=== PATIENT | female | born 1990 | race Caucasian/White ===

== ENCOUNTER → 2018-04-13 08:21 | Outpatient (CLI) | payer OTHER, SELFPAY ==
[2018-04-21 13:11] LABS: HPV Reflexed? NOT INDICATED
== END ==
PROVIDERS: Visit Provider Nurse Practitioner Women's Health
DX: Z12.4 Encounter for screening for malignant neoplasm of cervix (principal)
CPT/HCPCS: 88175; G0145

== ENCOUNTER 2018-10-10 12:22 | Emergency (ER) | payer OTHER, SELFPAY ==
[2018-10-10 12:23] VITALS: BP 116/74; PULSE 124; RESP 16; TEMP 37.3; O2SAT 94; BMI 17.9
[2018-10-10] MEDS: Ondansetron 4 MG/2 ML Vial IV (12:54)
[2018-10-10 13:01] LABS: Absolute Lymphocyte Count 0.61 X10^3/ul (0.83-4.51); Absolute Neutrophil Count 4.8 X10^3/uL (2.0-7.7); Hematocrit 42.6 % (37-47); Hemoglobin 14.1 g/dl (12.0-15.0); Lymphocyte # 0.61 X10^3/ul (4.0); Lymphocyte % 10.6 % (19-41); Mean Corp Hgb Conc 33.1 g/gl (32-36); Mean Corpuscular Hgb 29.7 pg (27.0-32.0); Mean Corpuscular Volume 89.7 fL (81-99); Mean Platelet Vol. 10.4 fl (6.2-12.0); Monocyte# 0.34 X10^3/uL; Monocyte% 5.9 % (0-10); Neutrophil % 83.5 % (47-70); Platelet Count 194 K/mm3 (150-450); RBC Distribution Width CV 12.7 % (11.6-14.6); RBC Distribution Width SD 41.4 fl (35.1-43.9); Red Blood Count 4.75 M/mm3 (4.2-5.4); White Blood Count 5.8 K/mm3 (4.4-11.0)
[2018-10-10 13:02] LABS: POSITIVE COUNT NO; POSITIVE DIFFERENTIAL NO; POSITIVE MORPHOLOGY NO
[2018-10-10 13:13] LABS: Anion Gap 10 (5-15); BUN 12 mg/dL (7-18); BUN/Creat Ratio 17.2 RATIO (10-20); Calcium,Total 8.2 mg/dL (8.5-10.1); Chloride 104 mmol/L (98-107); EST Glomerular Filtration Rate 107 mL/min (>60); Est Glom Filt Rate - Afr Amer 130 mL/min (>60); Estimated Creatinine Clearance 105.55 ml/min; Glucose 103 mg/dL (74-106); Potassium 3.3 mmol/L (3.5-5.1); Sodium Level 138 mmol/L (136-145)
[2018-10-10 14:01] LABS: Bacteria 0 SEEN /hpf (None Seen); Mucous, Urine 0 SEEN /hpf (<or=2+); Red Blood Cells-Urine 0 SEEN /hpf (0-5); Squamous Epithelial Cells - UA 0 SEEN /hpf (5-10); White Blood Cells 0 SEEN /hpf (0-5)
[2018-10-10 14:03] LABS: Color, Urine Yellow (Yellow); Glucose, Dipstick Normal (Normal); Ketone-Dipstick 15 mg/dl (Negative); Leukocyte Esterase-Dipstick Negative /ul (Negative); Nitrite-Dipstick Negative (Negative); Occult Blood-Urine 10 /ul (Negative); Protein-Dipstick Negative (Negative); Specific Gravity, Urine 1.015 (1.002-1.030); Urine Bilirubin Dipstick Negative (Negative); Urine Clarity Clear (Clear); Urine Urobilinogen Normal (Normal)
--- NOTE | 2018-10-10 14:29 | ED.VISSUMM ---
- ER Visit Summary Date of Service: 10/10/18 Chief Complaint: [Nausea, vomiting, and diarrhea] History of Present Illness: The patient is a 28 F [presents to the emergency department with symptoms that started 4 days ago. Patient states that she is throwing up every time she tries to eat anything. Patient is having 3-4 watery stools per day. Patient had a fever yesterday. She denies any sick contacts. She does not believe she ate anything questionable. She denies any abdominal pain. She denies urinary symptoms.] Physical Examination: [HEENT-PERRLA, EOMI. Cranial nerves II through XII grossly intact. TMs clear. Mucous membranes moist. No adenopathy. Cardiovascular-regular rate and rhythm without murmur or ectopy Lungs-clear to auscultation, chest wall stable without crepitus or subcu emphysema Abdomen-normoactive bowel sounds, soft, nontender, no rebound or rigidity, no peritoneal signs. Extremities-intact ?4, normal range of motion, normal pulses, atraumatic] Test Results: [CBC with differential obtained showed a white of 5.8, hemoglobin 14, hematocrit 43, platelets 194. Chemistry showed a sodium 138, potassium 3.3, CO2 24, BUN 12, creatinine 0.7. Urinalysis was unremarkable other than she had few ketones.] Emergency Department Course and Treatment: [Patient received Zofran and was ordered 2 L of normal saline. Patient was then able to eat and tolerate p.o.'s. I also ordered stool for enteric pathogens however patient unable to produce a sample here.] Treatment Plan: [She will be given a prescription for Zofran and advised to follow-up with primary care physician section laborer for no doc within the next 5-7 days. Patient advised to return if persistent vomiting, diarrhea, dehydration, worsening abdominal pain, or condition should worsen anyway.] Disposition: [Discharged home in stable condition] Impression: [Viral gastroenteritis] This note was generated with InOpen dictation software. It may contain incorrect words, spelling, and punctuation that were not noted in review of the chart prior to signing ED Disposition - Plan for ED Patient: Chief Complaint: Nausea/Vomiting/Diarrhea Referrals: Care Physician,No Primary [Primary Care Provider] -
--- NOTE | 2018-10-10 14:32 | ED.DCSUM_ITS ---
- ER Visit Summary Date of Service: 10/10/18 Chief Complaint: [Nausea, vomiting, and diarrhea] History of Present Illness: The patient is a 28 F [presents to the emergency department with symptoms that started 4 days ago. Patient states that she is throwing up every time she tries to eat anything. Patient is having 3-4 watery stools per day. Patient had a fever yesterday. She denies any sick contacts. She does not believe she ate anything questionable. She denies any abdominal pain. She denies urinary symptoms.] Physical Examination: [HEENT-PERRLA, EOMI. Cranial nerves II through XII grossly intact. TMs clear. Mucous membranes moist. No adenopathy. Cardiovascular-regular rate and rhythm without murmur or ectopy Lungs-clear to auscultation, chest wall stable without crepitus or subcu emphysema Abdomen-normoactive bowel sounds, soft, nontender, no rebound or rigidity, no peritoneal signs. Extremities-intact ?4, normal range of motion, normal pulses, atraumatic] Test Results: [CBC with differential obtained showed a white of 5.8, hemoglobin 14, hematocrit 43, platelets 194. Chemistry showed a sodium 138, potassium 3.3, CO2 24, BUN 12, creatinine 0.7. Urinalysis was unremarkable other than she had few ketones.] Emergency Department Course and Treatment: [Patient received Zofran and was ordered 2 L of normal saline. Patient was then able to eat and tolerate p.o.'s. I also ordered stool for enteric pathogens however patient unable to produce a sample here.] Treatment Plan: [She will be given a prescription for Zofran and advised to follow-up with primary care physician concrete pavement installer for no doc within the next 5-7 days. Patient advised to return if persistent vomiting, diarrhea, dehydration, worsening abdominal pain, or condition should worsen anyway.] Disposition: [Discharged home in stable condition] Impression: [Viral gastroenteritis] This note was generated with Posterous dictation software. It may contain incorrect words, spelling, and punctuation that were not noted in review of the chart prior to signing ED Disposition - Plan for ED Patient: Chief Complaint: Nausea/Vomiting/Diarrhea Referrals: Care Physician,No Primary [Primary Care Provider] -
--- NOTE | 2018-10-10 14:33 | ED.DEP ---
ED Disposition - Plan for ED Patient: Chief Complaint: Nausea/Vomiting/Diarrhea Instructions: ED Gastroenteritis Viral Prescriptions: Ondansetron [Zofran Odt] 4 mg PO Q8H PRN PRN #10 tab PRN Reason: Nausea Referrals: Care Physician,No Primary [Primary Care Provider] - Ryne Mcdonough III, MD [STAFF PHYSICIAN] - 5-7 Days
[2018-10-10 14:36] VITALS: BP 129/79; PULSE 104; RESP 18; O2SAT 99
== END 2018-10-10 14:49 | disposition home or self-care (01) ==
LOC: ED 12:52
PROVIDERS: Emergency Provider Emergency Medicine
DX: A08.4 Viral intestinal infection, unspecified (principal)
CPT/HCPCS: 80048; 81001; 85025; 96361; 96374; 99284; J7030; J2405

== ENCOUNTER → 2019-08-13 | Outpatient (CLI) | payer OTHER, SELFPAY ==
[2019-08-13 13:59] VITALS: BMI 18.1
[2019-08-13 15:35] LABS: Absolute Neutrophil Count 9.5 X10^3/uL (2.0-7.7); Basophil# 0.04 X10^3/uL; Basophil% 0.3 % (0-1); Eosinophil# 0.09 X10^3/uL; Eosinophils% 0.8 % (0-5); Hematocrit 42.8 % (37-47); Hemoglobin 14.4 g/dL (12.0-15.0); Lymphocyte % 12.6 % (19-41); Mean Corp Hgb Conc 33.6 g/dL (32-36); Mean Corpuscular Hgb 30.7 pg (27.0-32.0); Mean Corpuscular Volume 91.3 fL (81-99); Mean Platelet Vol. 10.4 fl (6.2-12.0); Monocyte# 0.74 X10^3/uL; Monocyte% 6.2 % (0-10); NRBC Flagged by Analyzer 0 % (0-5); Neutrophil # 9.51 X10^3/uL (2.7-7.7); Neutrophil % 79.5 % (47-70); Platelet Count 256 K/mm3 (150-450); RBC Distribution Width CV 12.6 % (11.6-14.6); RBC Distribution Width SD 41.7 fl (35.1-43.9); Red Blood Count 4.69 M/mm3 (4.2-5.4)
[2019-08-13 18:53] LABS: Chlamydia Trachomatis by PCR Negative (Negative); Neisserai gonorrhoeae by PCR Negative (Negative); Probe Check PASS; Sample Adequacy Control PASS; Specimen Processing Control PASS
[2019-08-14 09:23] LABS: HIV - WCH Non-Reactive (Nonreactive); Hepatitis B Surface Antigen Non-Reactive (Nonreactive); Rubella IgG 140.3 IU/mL
[2019-08-16 03:07] LABS: Rapid Plasmin Reagin (RPR) NONREACTIVE (NONREACTIVE)
== END | disposition home or self-care (01) ==
PROVIDERS: Referring Provider Obstetrics & Gynecology; Visit Provider Obstetrics & Gynecology
DX: Z34.90 Encounter for supervision of normal pregnancy, unspecified, unspecified trimester (principal)
CPT/HCPCS: 36415; 85025; 86592; 86703; 86762; 86850; 86900; 86901; 87340; 87491; 87591

== ENCOUNTER → 2019-10-08 17:13 | Outpatient (CLI) | payer OTHER, SELFPAY ==
[2019-10-08 13:48] VITALS: BMI 18.1
== END ==
PROVIDERS: Referring Provider Obstetrics & Gynecology; Visit Provider Obstetrics & Gynecology
DX: Z34.92 Encounter for supervision of normal pregnancy, unspecified, second trimester (principal); Z3A.18 18 weeks gestation of pregnancy
CPT/HCPCS: 87086

== ENCOUNTER → 2019-10-16 07:42 | Outpatient (CLI) | payer OTHER, SELFPAY ==
[2019-09-10 14:01] VITALS: BMI 18.1
[2019-10-08 13:48] VITALS: BMI 18.1
--- NOTE | 2019-10-16 07:43 | US_ITS ---
STUDY: SECOND AND THIRD TRIMESTER OBSTETRICAL ULTRASOUND REASON FOR EXAM: Female, 29 years old ANATOMY LMP: 06/02/2019 TECHNIQUE: Transabdominal TECHNICAL QUALITY: Adequate. PRIOR ULTRASOUND: None. FINDINGS: There is a single intrauterine fetus. The fetus is in a cephalic presentation. There is demonstrated cardiac activity with a heart rate of 160 bpm. There is a normal amniotic fluid volume. The largest amniotic fluid pocket measures 5.1 cm. The amniotic fluid index (ESTELA) is 15.2 cm. The placenta is fundal in location. There are Grade 0 placental changes. The cervix measures 4.5 cm in length. The adnexal regions are not visualized. BIOMETRY: BPD: 4.7: 20 weeks, 1 days HC: 17.1: 19 weeks, 4 days AC: 14.7: 19 weeks, 6 days FL: 3.2: 19 weeks, 5 days CI: FL/BPD: FL/HC: FL/AC: HC/AC: age by current US: 19 weeks, 5 days. EVAN by current US: 03/06/2019. Estimated weight: 318 grams, +/- 47 grams, 70 %. age by prior US: weeks, days. EVAN by prior US: . Age by LMP: 19 weeks, 3 days. EVAN by LMP: 03/08/2020. ANATOMY: Gender: Cranium: Normal lateral ventricles. Normal choroid plexus. Normal cerebellum. Normal cisterna magna. Normal face, nose and lips. Chest: Normal 4-chamber heart. Abdomen/Pelvis: Normal diaphragm. Normal stomach. Normal abdominal wall. Normal cord insertion. Normal 3 vessel cord. Normal kidneys. Normal bladder. Spine: Normal cervical spine. Normal thoracic spine. Normal lumbar spine. Normal sacrum. Extremities: Normal bilateral upper extremities. Normal bilateral lower extremities. US/OB Anatomy Scan IMPRESSION: Single live fetus in a vertex presentation. No demonstrated anatomic abnormality. Placenta is grade 0 and is not low-lying. Cervix is closed. age by current US: 19 weeks, 5 days. EVAN by current US: 03/06/2019. Estimated weight: 318 grams, +/- 47 grams, 70 %. Electronically Signed: Garett May MD at 15:48 EST , Service support ,
== END ==
PROVIDERS: Referring Provider Obstetrics & Gynecology; Visit Provider Obstetrics & Gynecology
DX: Z34.00 Encounter for supervision of normal first pregnancy, unspecified trimester (principal)
CPT/HCPCS: 76805

== ENCOUNTER 2019-11-10 13:40 | Outpatient (CLI) | payer OTHER, SELFPAY ==
[2019-11-05 09:59] VITALS: BMI 18.1
[2019-11-10 13:56] VITALS: BMI 21.0
--- NOTE | 2019-11-12 20:22 | OB.TRI.PN ---
Progress Notes Date of Service: 11/10/19 Progress Note: vaginal bleeding at 23 weeks no cervical dilation no contractions dc home fht present rh positive Multi Select Codes - Urinary/Genital Urinary/Genital CPT Codes: Other Procedure See Report - no charge report visit
== END 2019-11-10 14:20 | disposition home or self-care (01) ==
LOC: WPOUT 13:51 → OBT 13:53
PROVIDERS: Visit Provider Obstetrics & Gynecology
DX: O46.92 Antepartum hemorrhage, unspecified, second trimester (principal); Z3A.23 23 weeks gestation of pregnancy
CPT/HCPCS: 59050; 99218; G0378

== ENCOUNTER → 2019-12-03 | Outpatient (CLI) | payer OTHER, SELFPAY ==
[2019-12-03 15:06] VITALS: BMI 21.0
[2019-12-03 16:36] LABS: Glucose Challenge Gest 1H 50g 215 mg/dL (70-140)
[2019-12-03 16:47] LABS: Absolute Lymphocyte Count 1.92 X10^3/uL (0.83-4.51); Absolute Neutrophil Count 8.2 X10^3/uL (2.0-7.7); Basophil# 0.03 X10^3/uL; Basophil% 0.3 % (0-1); Eosinophil# 0.07 X10^3/uL; Eosinophils% 0.6 % (0-5); Hematocrit 33.8 % (37-47); Hemoglobin 11.3 g/dL (12.0-15.0); Lymphocyte # 1.92 X10^3/ul (4.0); Lymphocyte % 17.4 % (19-41); Mean Corp Hgb Conc 33.4 g/dL (32-36); Mean Corpuscular Hgb 31.4 pg (27.0-32.0); Mean Corpuscular Volume 93.9 fL (81-99); Mean Platelet Vol. 11.1 fl (6.2-12.0); Monocyte# 0.69 X10^3/uL; Monocyte% 6.3 % (0-10); NRBC Flagged by Analyzer 0 % (0-5); Neutrophil # 8.24 X10^3/uL (2.7-7.7); Neutrophil % 74.8 % (47-70); Platelet Count 202 K/mm3 (150-450); RBC Distribution Width CV 12.8 % (11.6-14.6); RBC Distribution Width SD 43.9 fl (35.1-43.9)
[2019-12-04 11:02] LABS: Hepatitis B Surface Antigen Non-Reactive (Nonreactive); Hepatitis C Antibody Non-Reactive (Nonreactive)
== END | disposition home or self-care (01) ==
LOC: PAVLAB 15:24
PROVIDERS: Nurse Practitioner Women's Health; Referring Provider Obstetrics & Gynecology; Visit Provider Obstetrics & Gynecology
DX: Z34.90 Encounter for supervision of normal pregnancy, unspecified, unspecified trimester (principal)
CPT/HCPCS: 36415; 82950; 85025; 86803; 87340

== ENCOUNTER 2019-12-09 20:20 | Outpatient (CLI) | payer OTHER, SELFPAY ==
[2019-12-03 15:06] VITALS: BMI 21.0
[2019-12-09 21:28] VITALS: BMI 21.5
[2019-12-09 21:34] LABS: Color, Urine Straw (Yellow); Glucose, Dipstick Normal (Normal); Ketone-Dipstick 5 mg/dl (Negative); Leukocyte Esterase-Dipstick 100 /ul (Negative); Nitrite-Dipstick Negative (Negative); Occult Blood-Urine Negative /ul (Negative); Protein-Dipstick Negative (Negative); Specific Gravity, Urine 1.005 (1.002-1.030); Urine Bilirubin Dipstick Negative (Negative); Urine Clarity Clear (Clear); Urine Urobilinogen Normal (Normal)
[2019-12-09] MEDS: Acetaminophen 500 MG Tablet 1000 MG PO (22:16)
[2019-12-09] MEDS: Mag Hydrox/Al Hydrox/Simeth 30 ML UDC PO (22:16)
--- NOTE | 2019-12-10 11:18 | OB.TRI.PN_ITS ---
Progress Notes Date of Service: 12/09/19 Progress Note: Patient presents for triage evaluation secondary to abdominal pain FHT: 140 Moderate variability reactive no decelerations category I tracing [place]: no regular Contractions Assessment and plan: abdominal pain no labor likely round ligament, Reactive NST, reassuring maternal and status patient discharged to home to follow- up as scheduled. See problem list details for additional plan information. Laboratory Studies: Laboratory Tests 12/09/19 Range/Units 21:20 Urine Color Straw (Yellow) Urine Clarity Clear (Clear) Urine pH 7.0 (5.0 - 8.0) Ur Specific [place] 1.005 (1.002-1.030) Urine Protein Negative (Negative) mg/dl Urine Glucose (UA) Normal (Normal) mg/dl Urine Ketones 5 H (Negative) mg/dl Urine Occult Blood Negative (Negative) /ul Urine Nitrite Negative (Negative) Urine Bilirubin Negative (Negative) mg/dL Urine Urobilinogen Normal (Normal) mg/dl Ur Leukocyte Esterase 100 H (Negative) /ul Multi Select Codes - Urinary/Genital Urinary/Genital CPT Codes: 40040-16 non-stress test Interp
== END 2019-12-09 22:21 | disposition home or self-care (01) ==
LOC: WPOUT 20:29 → OBT 20:29
PROVIDERS: Visit Provider Obstetrics & Gynecology
DX: O26.899 Other specified pregnancy related conditions, unspecified trimester (principal); R10.9 Unspecified abdominal pain; Z3A.00 Weeks of gestation of pregnancy not specified
CPT/HCPCS: 59025; 59050; 81002; 99218; G0378

== ENCOUNTER → 2020-02-06 13:58 | Outpatient (CLI) | payer OTHER, SELFPAY ==
[2020-01-14 15:35] VITALS: BMI 21.5
--- NOTE | 2020-02-06 13:59 | US_ITS ---
STUDY: SECOND AND THIRD TRIMESTER OBSTETRICAL ULTRASOUND - LIMITED REASON FOR EXAM: Female, 29 years old GROWTH - GEST DM LMP: June 02, 2019. PRIOR ULTRASOUND: Comparison is made with prior examination dated October 16, 2019. TECHNIQUE: Transabdominal TECHNICAL QUALITY: Adequate. FINDINGS: There is a single intrauterine fetus. The fetus is in a cephalic presentation. There is demonstrated cardiac activity with a heart rate of 118 bpm. There is a normal amniotic fluid volume. The largest amniotic fluid pocket measures 3.1 cm. The amniotic fluid index (ESTELA) is 10.3 cm. The placenta is fundal in location. There are Grade 2 placental changes. The cervix measures 5.0 cm in length. BIOMETRY: BPD: 9.04 cm: 36 weeks, 5 days HC: 32.33 cm: 36 weeks, 4 days AC: 33.51 cm: 37 weeks, 3 days FL: 6.81 cm: 35 weeks, 0 days Age by LMP: 35 weeks, 4 days. EVAN by LMP: March 08, 2020. age by prior US: 35 weeks, 6 days. EVAN by prior US: March 06, 2020. age by current US: 36 weeks, 3 days. EVAN by current US: March 02, 2020. Estimated weight: 2994 grams, +/- 437 grams, 79 percentile. US/OB Limited With Biometrics IMPRESSION: Single live uterine gestation with a mean gestational age of 35 weeks and 6 days. The measurements obtained today following with thin the normal expected range. Electronically Signed: Michael Holley, at 15:42 EDT , Service support ,
== END ==
PROVIDERS: Referring Provider Obstetrics & Gynecology; Visit Provider Obstetrics & Gynecology
DX: O24.419 Gestational diabetes mellitus in pregnancy, unspecified control (principal); Z3A.00 Weeks of gestation of pregnancy not specified
CPT/HCPCS: 76816

== ENCOUNTER → 2020-02-11 | Outpatient (CLI) | payer OTHER, SELFPAY ==
[2020-02-11 15:27] VITALS: BMI 21.5
== END | disposition home or self-care (01) ==
LOC: LABSPEC 16:50
PROVIDERS: Referring Provider Obstetrics & Gynecology; Visit Provider Obstetrics & Gynecology
DX: Z34.02 Encounter for supervision of normal first pregnancy, second trimester (principal)
CPT/HCPCS: 87081

== ENCOUNTER 2020-03-07 02:55 | Inpatient (IN) | payer OTHER, SELFPAY ==
[2020-03-03 15:47] VITALS: BMI 21.5
[2020-03-07] VITALS (50 sets, daily range): BP systolic 103–144; BP diastolic 56–90; PULSE 75–118; RESP 16; TEMP 36.1–38.1; O2SAT 92–100; BMI 22.5
[2020-03-07] MEDS: Lactated Ringers 1,000 ML 50 ML IV (03:25)
[2020-03-07 03:35] LABS: Absolute Lymphocyte Count 1.57 X10^3/uL (0.83-4.51); Absolute Neutrophil Count 11.4 X10^3/uL (2.0-7.7); Basophil# 0.03 X10^3/uL; Basophil% 0.2 % (0-1); Eosinophil# 0.01 X10^3/uL; Eosinophils% 0.1 % (0-5); Hematocrit 36.7 % (37-47); Hemoglobin 12.4 g/dL (12.0-15.0); Lymphocyte # 1.57 X10^3/ul (4.0); Lymphocyte % 11.3 % (19-41); Mean Corp Hgb Conc 33.8 g/dL (32-36); Mean Corpuscular Hgb 30.7 pg (27.0-32.0); Mean Corpuscular Volume 90.8 fL (81-99); Mean Platelet Vol. 11.7 fl (6.2-12.0); Monocyte# 0.86 X10^3/uL; Monocyte% 6.2 % (0-10); NRBC Flagged by Analyzer 0 % (0-5); Neutrophil # 11.37 X10^3/uL (2.7-7.7); Neutrophil % 81.5 % (47-70); Platelet Count 212 K/mm3 (150-450); RBC Distribution Width CV 13.5 % (11.6-14.6); RBC Distribution Width SD 44.4 fl (35.1-43.9); Red Blood Count 4.04 M/mm3 (4.2-5.4); White Blood Count 13.9 K/mm3 (4.4-11.0)
[2020-03-07 03:40] LABS: Bedside Glucose 92 mg/dL (70-110)
[2020-03-07] MEDS: fentaNYL 100 MCG/2 ML Ampul IV (04:09)
[2020-03-07] MEDS: Lactated Ringers 500 ML 999 ML IV (04:16)
--- NOTE | 2020-03-07 04:49 | PCM.HP.OB ---
- Problem List (1) Active labor at term Status: Acute (2) Gestational diabetes mellitus (GDM) affecting Status: Acute Comment: diet controlled, plan 34 week growth us. delivery by 40 (3) Supervision of normal first Status: Acute Qualifiers: Comment: PRR EVAN 03/08/2020 boy Spouse Raffy (4) Status: Acute Qualifiers: Comment: Declines genetic, carrier and NTD at this time. anatomy us normal History Date of Admission: 03/07/20 History of this : This is a 29 year-old, at 39 weeks gestational age presents in active labor she has had contractions increasing over the last several hours denies any vaginal bleeding or loss of fluid admits good movement. She has had a complicated by gestational diabetes.. Medical History: Medical History (Last Reviewed 03/03/20 @ 15:43 by Fidelia Zamudio) Ophthalmic migraine G43.109 Anxiety F41.9 Surgical History: Surgical History (Last Reviewed 03/03/20 @ 15:43 by Fidelia Zamudio) S/P wisdom tooth extraction Onset Date: ~2009 Z98.818 Allergies amoxicillin [Amoxicillin] Allergy (Verified 03/07/20 01:33) Vomiting Home Medications: Home Medications vitamin#30 30 mg iron-10 mg iron-folic acid 1 mg-omg3 capsule 1 cap PO DAILY cap 08/13/19 blood sugar diagnostic See Rx Instructions .ROUTE .MEDSUPPLY #100 ea 12/04/19 blood-glucose meter See Rx Instructions .ROUTE .MEDSUPPLY #1 ea 12/04/19 Smoking Status: Never smoker Alcohol: None Number of Fetus(es): 1 NST - FHR Rate Baby A Baseline: 130 Variability:: Moderate Accelerations:: 15 x 15 Decelerations:: None NST Reactive:: Yes FHR Category:: Category I Uterine Activity:: q 2-4 History Past Pregnancies: Past Pregnancies Delivery Date Name GA/ Weeks Outcome Route Wt Sex Labor Length Anesthesia Delivery Location Provider FOB Labs: Mom[facility] Microbiology 03/07/20 03:25 Mucosa - Nasopharyngeal Coronavirus COVID-19 PCR - Pending Mom's Labs & Results 03/07/20 03/07/20 03/07/20 02:00 03:25 03:25 WBC 13.9 H RBC 4.04 L Hgb 12.4 Hct 36.7 L MCV 90.8 MCH 30.7 MCHC 33.8 RDW Std Deviation 44.4 H RDW Coeff of Rick 13.5 Plt Count 212 MPV 11.7 Immature Gran % (Auto) 0.700 Neut % (Auto) 81.5 H Lymph % (Auto) 11.3 L Bledsoe % (Auto) 6.2 Eos % (Auto) 0.1 Baso % (Auto) 0.2 Absolute Neuts (auto) 11.4 H Absolute Lymphs (auto) 1.57 Nucleated RBC % 0 Vag Amniotic Fld Detect Cancelled POC Glucose Blood Type O POSITIVE Antibody Screen NEGATIVE 03/07/20 03:36 WBC RBC Hgb Hct MCV MCH MCHC RDW Std Deviation RDW Coeff of Rick Plt Count MPV Immature Gran % (Auto) Neut % (Auto) Lymph % (Auto) Bledsoe % (Auto) Eos % (Auto) Baso % (Auto) Absolute Neuts (auto) Absolute Lymphs (auto) Nucleated RBC % Vag Amniotic Fld Detect POC Glucose 92 Blood Type Antibody Screen Course Did the patient receive Yes care? Labs Blood Type: O RH: POSITIVE RPR/VDRL/Syphilis Nonreactive Rubella status Immune HbSAg Negative Date Done: 12/03/19 Chlamydia Negative Gonorrhea Negative HIV/AIDS Non-Reactive Group B Strep: Negative Current Obstetrical History Gestational Diabetes Yes Incompetent Cervix No Infertility No IUGR No Macrosomia No Hypertension/Pre-eclampsia No Placenta Previa/Abruption No PTL/PROM No Uterine anomaly No Oligohydramnios No Polyhydramnios No Multiple gestation No Past Medical History Asthma No Diabetes No Hypertension No Heart disease No Mitral valve prolapse No Neurologic/Seizure disorder/ No Migraines Kidney disease No Liver disease No Varicosities No Clotting disorders/Hx of DVT No Thyroid Dysfunction No Other medical diseases No Psychiatric disorders No Major trauma No Abnormal PAP smear No Sleep apnea No Mammogram in the last 2 years No Social History Marital Status: Alleged father Raffy Sparks Hx Smoking No Smoking Status Never smoker Expected Infant Delivery Method: Spontaneous Vaginal Review of Systems Constitutional: Denies: Fever, Malaise Eyes: Denies: Blurred vision, Vision Change HEENT: Denies: Head Aches, Visual Changes Cardiovascular: Denies: Chest Pain, Palpitations Respiratory: Denies: Cough, Shortness of Breath, Wheezing Gastrointestinal: Denies: Abdominal Pain, Diarrhea, Nausea, Vomiting Genitourinary: Denies: Dysuria, Hematuria Musculoskeletal: Denies: Joint Pain, Muscle pain Skin: Denies: Lesions, Rash Neurological: Denies: Blurred vision, Focal weakness, Headaches Psychiatric: Denies: Anxiety, Depression Endocrine: Denies: Heat/ Cold Intolerance Hematologic/ Lymphatic: Denies: Easy Bruising, Easy Bleeding Physical Exam Vitals: Vital Signs Temp Pulse BP Pulse Ox 97.1 F L 92 123/81 H 97 03/07/20 03:55 03/07/20 03:56 03/07/20 03:56 03/07/20 03:55 General: Alert, Cooperative, No apparent distress HEENT: Atraumatic, Normocephalic. Negative for: Thyromegaly, Lymphadenopathy Cardiovascular: Regular rate Lungs: Normal air movement Abdomen: Soft, Non Tender, Gravid Neurological: Deep Tendon Reflexes 2+/4 and Symmetrical, Neuro grossly intact. Negative for: Clonus WET PROCESS MILLER: Normal external genitalia. Negative for: Vulvar lesions Estimated gestational size: Appropriate for gestational size Presentation: Cephalic Cervix Dilation (cm): 3.5 Assessment/Plan All Active Problems (Last Reviewed 03/03/20 @ 15:43 by Fidelia Zamudio) Active labor at term (Acute) Gestational diabetes mellitus (GDM) affecting (Acute) Supervision of normal first (Acute) (Acute) Maxillary sinusitis (Resolved) Pharyngitis (Resolved) This is a 29 year-old, at 39 weeks gestational age presents IAL. Patient presents IAL, plan expectant management for , Pitocin/AROM if needed. Pain management: Plans epidural. GBS negative. Management of any complications: Gestational diabetes check blood sugars in labor I have reviewed the [facility] and made any clinically relevant updates.
[2020-03-07] MEDS: fentaNYL-bupivacaine (epidural) 100 ML BAG EPIDURAL ×3 (05:04→14:12)
[2020-03-07 05:36] LABS: Bedside Glucose 96 mg/dL (70-110)
[2020-03-07 08:30] LABS: Bedside Glucose 94 mg/dL (70-110)
[2020-03-07 08:30] LABS: Bedside Glucose 101 mg/dL (70-110)
[2020-03-07] MEDS: Oxytocin 30 units/NS 500 ml 30 UNITS/500 ML IV.SOLN IV (08:32)
[2020-03-07 08:50] LABS: Bedside Glucose 82 mg/dL (70-110)
[2020-03-07] MEDS: Lactated Ringers 1,000 ML 200 ML IV (09:37)
[2020-03-07] MEDS: Ondansetron 4 MG/2 ML Vial IV (09:54)
[2020-03-07 09:56] LABS: Bedside Glucose 79 mg/dL (70-110)
[2020-03-07] MEDS: Acetaminophen 325 MG Tablet PO (10:31)
[2020-03-07 12:00] LABS: Bedside Glucose 89 mg/dL (70-110)
[2020-03-07 12:00] LABS: Bedside Glucose 90 mg/dL (70-110)
[2020-03-07] MEDS: Mag Hydrox/Al Hydrox/Simeth 30 ML UDC PO (14:12)
[2020-03-07 14:41] LABS: Bedside Glucose 76 mg/dL (70-110)
[2020-03-07 14:41] LABS: Bedside Glucose 77 mg/dL (70-110)
[2020-03-07] MEDS: Oxytocin 30 units/NS 500 ml 30 UNITS/500 ML IV.SOLN 334 UNITS IV (14:57)
--- NOTE | 2020-03-07 15:21 | PCM.OPRPT ---
Problem List (1) Active labor at term Status: Acute (2) Gestational diabetes mellitus (GDM) affecting Status: Acute Comment: diet controlled, plan 34 week growth us. delivery by 40 (3) Supervision of normal first Status: Acute Qualifiers: Comment: PRR EVAN 03/08/2020 boy Spouse Raffy (4) Status: Acute Qualifiers: Comment: Declines genetic, carrier and NTD at this time. anatomy us normal Vaginal Delivery Maternal Presentation: Active Labor 29-year-old G1, P0 at 39 weeks 6 days presents in active labor. She had a complicated by GDM A1 well-controlled with diet Method of Induction: Pitocin Amniotic Membrane Rupture Type: Artificial Amniotic Fluid Description: Clear Final EVAN: 03/08/20 Gestational age: 39 Weeks and 6 Days Date of Procedure: 03/07/20 Pre-Operative Diagnosis: In active labor GDM A1 recurrent decelerations Post-Operative Diagnosis: Same Surgery/ Procedure Performed: Vacuum Assisted Vaginal Delivery Type of Anesthesia: Epidural Description of Procedure: Patient began pushing and after a while heart rate tracing developed recurrent decelerations and temperature was elevated. Head was in the +3 station and pelvis assessed and noted to be adequate. Estimated weight was approximately 7 to 7-1/2 pounds. Patient was consented regarding risk benefits and alternatives to a vacuum operative vaginal delivery patient agreed to proceed with procedure. The vacuum was applied and suction noted to be within the green pressure with 1 pull with countertraction no pop offs with 1 contraction the head delivered archana atraumatically followed by the anterior and posterior shoulders the rest the infant delivered was placed in the maternal abdomen. Delayed cord clamping was employed for approximately 60 seconds. Cord was clamped and cut and gentle traction was applied to the cord and the placenta delivered spontaneously immediately following it was noted to be intact with three-vessel cord. The perineum and vagina were inspected and noted to have a significant third-degree laceration very close to being 4th degree. This was likely due to the vacuum application and also the patient had a very short perineal body. The repair was done in the usual fashion with 3-0 Vicryl Rapide and 2-0 PDS to reapproximate the anal sphincter and capsule. Repair was straightforward and complete and easily done. I discussed with the patient she can still consider vaginal delivery next time and if she does not have an operative vaginal delivery she will have less of the likelihood of tearing.. EBL was 300 cc. Patient and tolerated delivery well. Presentation: ARCHANA Placental Delivery Description: Spontaneous Placenta Disposition: [facility] Cord Vessel Description: 3 Vessels Cord Entanglement: None Estimated Blood Loss: 300 Infant A gender: Male Episiotomy Description: None Laceration: Perineal Extension/lac, 3rd degree Medications given after delivery: IV Pitocin Complications: None Multi Select Codes - Urinary/Genital Urinary/Genital CPT Codes: 50064 Vaginal Delivery global pkg - vacuum and third degree laceration repair
[2020-03-07] MEDS: Ketorolac 10 MG Tablet PO (16:15)
[2020-03-07] MEDS: 0.9% Saline Lock 10 ML Syringe IV (17:19)
[2020-03-07 17:35] LABS: Bedside Glucose 89 mg/dL (70-110)
[2020-03-07 17:35] LABS: Bedside Glucose 83 mg/dL (70-110)
[2020-03-08] VITALS (8 sets, daily range): BP systolic 99–116; BP diastolic 54–76; PULSE 76–103; RESP 16; TEMP 36.2–36.9; O2SAT 99–100
[2020-03-08] MEDS: Ketorolac 10 MG Tablet PO ×2 (03:15→09:23)
[2020-03-08 05:16] LABS: Bedside Glucose 83 mg/dL (70-110)
--- NOTE | 2020-03-08 05:16 | NURSING ---
Patient still unable to void, bladder scanned for >650cc. Kemp catheter inserted.
[2020-03-08] MEDS: Acetaminophen 500 MG Tablet 1000 MG PO ×2 (05:22→13:20)
[2020-03-08] MEDS: Senna/Docusate Sodium 1 Tablet PO (05:22)
--- NOTE | 2020-03-08 08:08 | PCM.PN.OB ---
Patient Problems: Active and Suspected Problems (Last Reviewed 03/03/20 @ 15:43 by Fidelia Zamudio) Active labor at term (Acute) Subjective: doing well no complaints pain controlled no CP SOB N V ambulating well tolerating po lochia moderate, going well, cath replaced, will remove later this morning - Physical Exam Vitals/I&O's: Vital Signs Temp Pulse Resp BP Pulse Ox 97.2 F L 86 16 99/54 L 99 03/08/20 07:59 03/08/20 07:59 03/08/20 07:59 03/08/20 07:59 03/08/20 07:59 Oxygen Delivery Method Room Air Weight: 152 lb 8 oz Body Mass Index (BMI) 22.5 Intake and Output for Last 24 Hours 03/06/20 03/07/20 03/08/20 23:59 23:59 23:59 Intake Total 3290.43 / 3290.43 Output Total 1900 / 1900 1100 / 1100 Balance 1390.43 / 1390.43 -1100 / -1100 General: Alert, Oriented x3 Microbiology Past 72 Hours 03/07/20 03:25 Mucosa - Nasopharyngeal Coronavirus COVID-19 PCR - Final Laboratory Results 03/07/20 06:18: POC Glucose 101 03/07/20 07:33: POC Glucose 94 03/07/20 08:30: POC Glucose 82 03/07/20 09:45: POC Glucose 79 03/07/20 10:45: POC Glucose 90 03/07/20 11:33: POC Glucose 89 03/07/20 12:45: POC Glucose 76 03/07/20 13:46: POC Glucose 77 03/07/20 14:40: POC Glucose 83 03/07/20 16:20: POC Glucose 89 03/08/20 04:59: POC Glucose 83 Current Medications Acetaminophen (Tylenol) 1,000 mg PO Q8H PRN PRN PRN Reason: Pain Score 1-3/10 Last Admin: 03/08/20 05:22 Dose: 1,000 mg Documented by: Bisacodyl (Dulcolax) 10 mg RECTAL UD PRN PRN Reason: If no BM Dextrose (D50w Syringe) 0 gm IV X1 PRN; Protocol PRN Reason: Hypoglycemia Dibucaine (Dibucaine) 1 applic TOPICAL TID PRN PRN; Protocol PRN Reason: Discomfort Glucagon () 1 mg IM .X1 PRN PRN Reason: Hypoglycemia Hydrocortisone (Hytone) 1 applic TOPICAL TID PRN PRN; Protocol PRN Reason: Discomfort Ketorolac Tromethamine (Toradol) 10 mg PO Q6H PRN PRN PRN Reason: Pain Score 1-3/10 Stop: 03/12/20 15:56 Last Admin: 03/08/20 03:15 Dose: 10 mg Documented by: Methylergonovine Maleate (Methergine) 0.2 mg IM X1 PRN PRN Reason: Excess bleeding/uterine atony Ondansetron HCl (Zofran) 4 mg IV Q4H PRN PRN PRN Reason: Nausea Oxycodone HCl (Oxyir) 5 - 10 mg PO Q4H PRN PRN PRN Reason: Pain Score 4-10/10 Senna/Docusate Sodium (Senokot-S, [place]ba-Colace) 1 - 2 tablet PO DAILY PRN PRN PRN Reason: Constipation Last Admin: 03/08/20 05:22 Dose: 2 tablet Documented by: Simethicone (Mylicon) 80 mg PO PCHS PRN PRN Reason: Indigestion/Stomach pain Sodium Chloride () 5 - 15 ml IV UD PRN PRN Reason: SALINE FLUSH Last Admin: 03/07/20 17:19 Dose: 10 ml Documented by: Medical Necessity - Tobacco Use Smoking Status: Never smoker Assessment/Plan All Active Problems (Last Reviewed 03/03/20 @ 15:43 by Fidelia Zamudio) Active labor at term (Acute) Gestational diabetes mellitus (GDM) affecting (Acute) Supervision of normal first (Acute) (Acute) Maxillary sinusitis (Resolved) Pharyngitis (Resolved) s/p PPD # 1 1. routine post delivery care 2. breast feeding- support given 3. rh positive 4. rubella immune
[2020-03-09] MEDS: Ketorolac 10 MG Tablet PO ×2 (00:37→10:44)
[2020-03-09 02:34] VITALS: BP 116/67; PULSE 84; RESP 16; TEMP 36.2
--- NOTE | 2020-03-09 07:02 | DCINST_ITS ---
Discharge Diet: No Restrictions Discharge Activity: Return to Normal Activity, May not drive while taking narcotic pain medications., May Shower May resume sexual activity in: 4-6 weeks Call your doctor if your incision/area has: Continuous Slow Oozing, Sudden Increased Bleeding, Increased Pain/ Swelling, Increased Redness, Foul Smelling Discharge Additional Instructions: If you experience any of the following, contact your healthcare provider. * Bleeding that soaks a pad every hour for 2 hours * Fever 100.4 or higher * Unrelieved incision or abdominal pain * Swelling, redness, discharge or bleeding from your incision or episiotomy site * Your incision begins to separate * Problems urinating (including inability to urinate or burning while urinating). * Visual changes * Severe headache * Flu-like symptoms * Pain or redness in one of both of your breasts * Pain, warmth, tenderness or swelling in your legs, especially the calf area * Frequent nausea and vomiting * Symptoms of depression or anxiety If you experience any of the following, call 911 or go to the nearest Emergency Room. * Chest pain * Problems breathing * Seizure activity * Partial or complete paralysis of a body part, slurred speech, weakness or drooping of the face, or a sudden inability to walk or hold your balance Allergies/Adverse Reactions: Allergies amoxicillin [Amoxicillin] Allergy (Verified 03/07/20 01:33) Vomiting Medications to take at Discharge vitamin#30 30 mg iron-10 mg iron-folic acid 1 mg-omg3 capsule 1 cap PO DAILY cap 08/13/19 blood sugar diagnostic See Rx Instructions .ROUTE .MEDSUPPLY #100 ea 12/04/19 blood-glucose meter See Rx Instructions .ROUTE .MEDSUPPLY #1 ea 12/04/19 Docusate Sodium [Colace] 100 mg PO BID #60 cap 03/09/20 Naproxen [Naprosyn] 250 - 500 mg PO Q8H PRN PRN #30 tab 03/09/20 Oxycodone HCl/Acetaminophen [Percocet 5-325] 1 - 2 tablet PO Q6H PRN PRN 7 Days #15 tablet 03/09/20 Please Follow Up With: Emmy Mary MD - [phone] When: Call to make an appointment with your doctor in 6 weeks. If you had elevated Blood pressure or 4th degree laceration you will need to be seen in 2 weeks. Primary Care Physician: Care Physician,No Primary [Primary Care Provider] - Test Results: Test results from this visit will be discussed in further detail at your follow- up appointment, if applicable.
--- NOTE | 2020-03-09 07:02 | PCM.PN.OB ---
Patient Problems: Active and Suspected Problems (Last Reviewed 03/03/20 @ 15:43 by Fidelia Zamudio) Active labor at term (Acute) Subjective: doing well no complaints pain controlled no CP SOB N V ambulating well tolerating po lochia moderate, going well - Physical Exam Vitals/I&O's: Vital Signs Temp Pulse Resp BP Pulse Ox 97.1 F L 84 16 116/67 99 03/09/20 02:34 03/09/20 02:34 03/09/20 02:34 03/09/20 02:34 03/08/20 16:52 Oxygen Delivery Method Room Air Weight: 152 lb 8 oz Body Mass Index (BMI) 22.5 Intake and Output for Last 24 Hours 03/07/20 03/08/20 03/09/20 23:59 23:59 23:59 Intake Total 3290.43 / 3290.43 Output Total 1900 / 1900 1880 / 1880 Balance 1390.43 / 1390.43 -1880 / -1880 General: Alert, Oriented x3 Microbiology Past 72 Hours 03/07/20 03:25 Mucosa - Nasopharyngeal Coronavirus COVID-19 PCR - Final Current Medications Acetaminophen (Tylenol) 1,000 mg PO Q8H PRN PRN PRN Reason: Pain Score 1-3/10 Last Admin: 03/08/20 13:20 Dose: 1,000 mg Documented by: Bisacodyl (Dulcolax) 10 mg RECTAL UD PRN PRN Reason: If no BM Dextrose (D50w Syringe) 0 gm IV X1 PRN; Protocol PRN Reason: Hypoglycemia Dibucaine (Dibucaine) 1 applic TOPICAL TID PRN PRN; Protocol PRN Reason: Discomfort Glucagon () 1 mg IM .X1 PRN PRN Reason: Hypoglycemia Hydrocortisone (Hytone) 1 applic TOPICAL TID PRN PRN; Protocol PRN Reason: Discomfort Ketorolac Tromethamine (Toradol) 10 mg PO Q6H PRN PRN PRN Reason: Pain Score 1-3/10 Stop: 03/12/20 15:56 Last Admin: 03/09/20 00:37 Dose: 10 mg Documented by: Methylergonovine Maleate (Methergine) 0.2 mg IM X1 PRN PRN Reason: Excess bleeding/uterine atony Ondansetron HCl (Zofran) 4 mg IV Q4H PRN PRN PRN Reason: Nausea Oxycodone HCl (Oxyir) 5 - 10 mg PO Q4H PRN PRN PRN Reason: Pain Score 4-10/10 Senna/Docusate Sodium (Senokot-S, Alba-Colace) 1 - 2 tablet PO DAILY PRN PRN PRN Reason: Constipation Last Admin: 03/08/20 05:22 Dose: 2 tablet Documented by: Simethicone (Mylicon) 80 mg PO PCHS PRN PRN Reason: Indigestion/Stomach pain Sodium Chloride () 5 - 15 ml IV UD PRN PRN Reason: SALINE FLUSH Last Admin: 03/07/20 17:19 Dose: 10 ml Documented by: Medical Necessity - Tobacco Use Smoking Status: Never smoker Assessment/Plan All Active Problems (Last Reviewed 03/03/20 @ 15:43 by Fidelia Zamudio) Active labor at term (Acute) Gestational diabetes mellitus (GDM) affecting (Acute) Supervision of normal first (Acute) (Acute) Maxillary sinusitis (Resolved) Pharyngitis (Resolved) s/p PPD # 2 1. routine post delivery care 2. breast feeding- support given 3. rh positive 4. rubella immune
[2020-03-09 07:22] VITALS: BP 105/61; PULSE 96; O2SAT 98
[2020-03-09 07:23] VITALS: BP 105/61; PULSE 96; RESP 16; TEMP 37; O2SAT 98
[2020-03-09] MEDS: Dibucaine 30 GM Tube 1 APPLIC TOPICAL (11:55)
[2020-03-09 12:05] VITALS: BP 104/58; PULSE 64; RESP 16; TEMP 36.3; O2SAT 99
== END 2020-03-09 12:40 | disposition home or self-care (01) | DRG 768 ==
LOC: WPOUT 03:05 → WP 03:05
PROVIDERS: Admitting Provider Obstetrics & Gynecology; Referring Provider Obstetrics & Gynecology; Visit Provider Obstetrics & Gynecology
DX: O24.420 Gestational diabetes mellitus in childbirth, diet controlled (principal); Z37.0 Single live birth; O70.20 Third degree perineal laceration during delivery, unspecified; O76 Abnormality in fetal heart rate and rhythm complicating labor and delivery; Z3A.39 39 weeks gestation of pregnancy
CPT/HCPCS: 59025; 59050; 82962; 85025; 86850; 86900; 86901; 87635; 99218; G2023; J7120; A4216; G0378; J2405; U0004

== ENCOUNTER 2020-03-18 22:05 | Emergency (ER) | payer OTHER, SELFPAY ==
[2020-03-07 01:33] VITALS: BMI 22.5
[2020-03-18 22:06] VITALS: BP 121/73; PULSE 109; RESP 16; TEMP 37.1; O2SAT 96; BMI 19.8
[2020-03-18 22:20] VITALS: TEMP 37.2
--- NOTE | 2020-03-18 22:20 | EKG12_ITS ---
Test Reason : DYSRHYTHMIA Blood Pressure : / mmHG Vent. Rate : 094 BPM Atrial Rate : 094 BPM P-R Int : 148 ms QRS Dur : 076 ms QT Int : 336 ms P-R-T Axes : 071 078 040 degrees QTc Int : 420 ms Normal sinus rhythm Normal ECG Confirmed by ALEJANDRO QUINONEZ, HBARGAV ([id number]), editorial cartoonist REHANA VILLALTA ([id number]) on 03/20/2020 10:43:06 AM Referred By: AUSTYN Confirmed By:BHARGAV ALLEN MD
--- NOTE | 2020-03-18 22:25 | ED.RN ---
NO OLD EKGS IN MUSE
--- NOTE | 2020-03-18 22:42 | US_ITS ---
STUDY: ULTRASOUND TRANSVAGINAL CLINICAL: Female, 29 years old. POST FEVER AND BLEEDING TECHNIQUE: Transabdominal and Transvaginal COMPARISON: None. FINDINGS: Normal uterine size measuring 10.9 x 9.4 x 5.9 cm in maximal craniocaudal dimension. There are no myometrial masses. Endometrial echoes measure 1.2 cm and are irregular with some fluid within the endometrial cavity. This may be blood. No definite focal soft tissue structures. Normal uterine cervix. Normal right ovary, measuring 2.1 x 2.1 x 1.1 cm. There is normal blood flow. Normal left ovary, measuring 2.2 x 1.5 x 1.1 cm. There is normal blood flow. There is no free fluid in the pelvis. Polycystic ovary disease: No. US/Pelvic (Non ) IMPRESSION: Enlarged uterus consistent with recent . Thickened endometrial echoes with a small amount of endometrial fluid which could be blood, but there is no specific evidence of retained products of conception. Electronically Signed: Garett May MD at 23:33 EDT , Service support ,
[2020-03-18 22:47] LABS: Bacteria 0 SEEN /hpf (None Seen); Mucous, Urine 0 SEEN /hpf (<or=2+); Squamous Epithelial Cells - UA 0 SEEN /hpf (5-10)
[2020-03-18 22:50] LABS: Absolute Lymphocyte Count 1.23 X10^3/uL (0.83-4.51); Absolute Neutrophil Count 9.4 X10^3/uL (2.0-7.7); Basophil# 0.03 X10^3/uL; Basophil% 0.3 % (0-1); Eosinophil# 0.04 X10^3/uL; Eosinophils% 0.3 % (0-5); Hematocrit 36.1 % (37-47); Hemoglobin 11.5 g/dL (12.0-15.0); Lymphocyte # 1.23 X10^3/ul (4.0); Lymphocyte % 10.7 % (19-41); Mean Corp Hgb Conc 31.9 g/dL (32-36); Mean Corpuscular Hgb 29.6 pg (27.0-32.0); Mean Corpuscular Volume 92.8 fL (81-99); Mean Platelet Vol. 9.8 fl (6.2-12.0); Monocyte# 0.74 X10^3/uL; Monocyte% 6.4 % (0-10); NRBC Flagged by Analyzer 0 % (0-5); Neutrophil # 9.44 X10^3/uL (2.7-7.7); Neutrophil % 81.9 % (47-70); Platelet Count 402 K/mm3 (150-450); RBC Distribution Width CV 13.6 % (11.6-14.6); RBC Distribution Width SD 45.7 fl (35.1-43.9); Red Blood Count 3.89 M/mm3 (4.2-5.4); White Blood Count 11.5 K/mm3 (4.4-11.0)
[2020-03-18 22:57] LABS: Color, Urine Yellow (Yellow); Glucose, Dipstick Normal (Normal); Ketone-Dipstick Negative (Negative); Leukocyte Esterase-Dipstick 100 /ul (Negative); Nitrite-Dipstick Negative (Negative); Occult Blood-Urine 250 /ul (Negative); Protein-Dipstick Negative (Negative); Specific Gravity, Urine 1.015 (1.002-1.030); Urine Bilirubin Dipstick Negative (Negative); Urine Clarity Clear (Clear); Urine Urobilinogen Normal (Normal)
[2020-03-18 22:58] LABS: Prothrombin Time (Protime)PT. 13.1 SECONDS (11.7-14.9)
[2020-03-18 22:59] LABS: Partial Thromboplast Time 30.2 Seconds (24.1-36.2)
[2020-03-18 23:12] LABS: ALB/GLOB Ratio 0.7 RATIO (0.9-2.4); AST(SGOT) 15 U/L (15-37); Alanine Aminotransfer ALT/SGPT 21 U/L (13-56); Albumin, Serum 3.2 g/dL (3.2-5.0); Alkaline Phosphatase 122 U/L (45-117); Anion Gap 10 (5-15); BUN 19 mg/dL (7-18); BUN/Creat Ratio 23.7 RATIO (10-20); Calcium,Total 8.7 mg/dL (8.5-10.1); Chloride 106 mmol/L (98-107); EST Glomerular Filtration Rate 91 mL/min (>60); Est Glom Filt Rate - Afr Amer 110 mL/min (>60); Estimated Creatinine Clearance 101.35 ml/min; Globulin 4.5 g/dL (2.2-4.2); Glucose 100 mg/dL (74-106); Lactic Acid 0.6 mmol/L (0.4-1.9); Potassium 3.8 mmol/L (3.5-5.1); Protein, Total 7.7 g/dL (6.4-8.2); Sodium Level 139 mmol/L (136-145)
[2020-03-18 23:20] VITALS: BP 126/82; PULSE 111; RESP 16; TEMP 36.9; O2SAT 97
[2020-03-18 23:27] LABS: Red Blood Cells-Urine 0-5 SEEN /hpf (0-5); White Blood Cells 5-10 SEEN /hpf (0-5)
--- NOTE | 2020-03-19 00:11 | ED.DCSUM_ITS ---
- ER Visit Summary Date of Service: 03/19/20 Chief Complaint: [Fever] History of Present Illness: The patient is a 29 F [presents the emergency department fever that started around 8 PM this evening. Patient states that she took her temperature orally and it was up to 101. Patient denies any other real significant symptoms other than she started having some lower abdominal cramping and some spotting of some bright red blood. Patient is 11 days and delivered vaginally. No significant complications at the time. She denies any sick contacts. She denies any cough or sore throat or body aches. No exposures to anybody with COVID-19. She currently denies any abdominal pain. She is had no vomiting or diarrhea. Patient is nursing. No tenderness or redness noted to the breasts.] Physical Examination: [HEENT-PERRLA, EOMI. Cranial nerves II through XII grossly intact. TMs clear. Mucous membranes moist. No adenopathy. Cardiovascular-regular rate and rhythm without murmur or ectopy Lungs-clear to auscultation, chest wall stable without crepitus or subcu em physema Abdomen-normoactive bowel sounds, soft, nontender, no rebound or rigidity, no peritoneal signs. Extremities-intact ?4, normal range of motion, normal pulses, atraumatic] Test Results: [CBC with differential obtained showed a slightly elevated white blood cell count of 11.5, hemoglobin 11.5, hematocrit 36, platelets 402. Chemistries unremarkable. LFTs unremarkable. Urinalysis showed 100 leukocyte esterase and 5-10 WBCs with no bacteria noted. Lactate was normal 0.6. Bleeding times were unremarkable.] Pelvic ultrasound obtained showed a enlarged uterus which is consistent with recent delivery. Patient had some blood noted within the uterus but no evidence of retained products. Emergency Department Course and Treatment: [Blood cultures ordered. IV line established on arrival. Case was discussed with Dr. Dafne Yin who was covering for Dr. Mary. At this point there is no clear indication for antibiotics. Patient did not have a fever on arrival here and she did not treat her fever at home.] Treatment Plan: [Patient to follow-up with her [facility] [employer]PERATOR within next 3 to 5 days. Patient advised to return if fever, urinary symptoms, cough, or condition should worsen anyway.] Disposition: [Discharged home in stable condition] Impression: [Fever-etiology uncertain] This note was generated with [employer] dictation software. It may contain incorrect words, spelling, and punctuation that were not noted in review of the chart prio r to signing ED Disposition - Plan for ED Patient: Referrals: Care Physician,No Primary [Primary Care Provider] -
[2020-03-19 00:14] VITALS: BP 119/77; PULSE 95; RESP 18; TEMP 37.2; O2SAT 96
--- NOTE | 2020-03-19 00:15 | ED.DEP ---
ED Disposition - Plan for ED Patient: Instructions: ED FUO Adult Referrals: Care Physician,No Primary [Primary Care Provider] - Emmy Mary MD [STAFF PHYSICIAN] - 3-5 Days
== END 2020-03-19 00:24 | disposition home or self-care (01) ==
PROVIDERS: Emergency Medicine; Emergency Provider Emergency Medicine
DX: O86.4 Pyrexia of unknown origin following delivery (principal)
CPT/HCPCS: 76856; 80053; 81001; 83605; 85025; 85610; 85730; 87040; 87077; 87086; 87088; 87186; 93005; 99284; A4216

== ENCOUNTER → 2021-07-27 | Outpatient (CLI) | payer OTHER, SELFPAY ==
[2021-07-30 16:30] LABS: HPV Reflexed? NOT INDICATED
== END | disposition home or self-care (01) ==
PROVIDERS: Referring Provider Nurse Practitioner Women's Health; Visit Provider Nurse Practitioner Women's Health
DX: Z12.4 Encounter for screening for malignant neoplasm of cervix (principal)
CPT/HCPCS: 88175; G0145

== ENCOUNTER → 2022-07-28 | Outpatient (CLI) | payer OTHER, SELFPAY ==
--- NOTE | 2022-07-28 14:16 | US_ITS ---
STUDY: ULTRASOUND OF THE FEMALE PELVIS - COMPLETE REASON FOR EXAM: Female, 32 years old. Abnormal uterine bleeding. LMP: 07/19/2022. TECHNIQUE: Transabdominal and Transvaginal TECHNICAL QUALITY: Adequate. COMPARISON: Comparison is made with prior study dated 03/18/2020. FINDINGS: The uterus is anteverted and is in a midline position. The uterus measures 7.4 cm x 5 cm x 4 cm. Normal uterine cervix. The endometrium measures 4 mm in thickness, and is hyperechoic. There is no demonstrated endometrial mass. There is no demonstrated myometrial mass. I.U.D. - The patient does not have an I.U.D. The right ovary is visualized. The right ovary measures 3.5 cm x 3 cm x 2.1 cm. Follicles are seen within the ovary. There is no visualized right adnexal mass or complex lesion. There is normal arterial and normal venous vascularity. The left ovary is visualized. The left ovary measures 1.8 cm x 2.2 cm x 1.7 cm. Follicles are seen within the ovary. There is no visualized left adnexal mass or complex lesion. There is normal arterial and normal venous vascularity. There is no fluid in the cul-de-sac. The pre void volume of the bladder was 511 ml. US/Pelvic (Non ) IMPRESSION: Follicles are seen in both ovaries. Electronically Signed: Michael Holley MD at 15:48 EDT ,
== END | disposition home or self-care (01) ==
PROVIDERS: Visit Provider Obstetrics & Gynecology
DX: N92.3 Ovulation bleeding (principal)
CPT/HCPCS: 76856

== ENCOUNTER → 2024-03-21 | Outpatient (CLI) | payer OTHER, SELFPAY ==
[2024-03-24 12:09] LABS: HPV APTIMA, High Risk Negative (Negative)
== END | disposition home or self-care (01) ==
LOC: LAB 10:22
PROVIDERS: Referring Provider Nurse Practitioner Women's Health; Visit Provider Nurse Practitioner Women's Health
DX: Z12.4 Encounter for screening for malignant neoplasm of cervix (principal)
CPT/HCPCS: 87624; 88175; G0145

== ENCOUNTER 2024-09-17 02:01 | Emergency (ER) | payer OTHER, SELFPAY ==
[2024-09-17 02:03] VITALS: BP 129/82; PULSE 106; RESP 20; TEMP 36.6; O2SAT 100; BMI 21.1
[2024-09-17 02:06] VITALS: BP 129/82; PULSE 99; RESP 20; TEMP 36.6; O2SAT 100
--- NOTE | 2024-09-17 02:09 | CT_ITS ---
EXAM: CT Abdomen And Pelvis W/O Contrast Injection HISTORY: Pain nausea, mid abd pain, neg hcg TECHNIQUE: Routine protocol CT abdomen and pelvis. IV Contrast: None.. Oral contrast: None. RADIATION DOSAGE (If Supplied By Facility): CTDIvol = ( 6.21 ) mGy, DLP = ( 301.15 ) mGycm Individualized dose optimization techniques were used for this CT. COMPARISON: None. LIMITATIONS: None. FINDINGS: LOWER CHEST: Included lung bases are clear. LIVER: Grossly unremarkable. GALLBLADDER AND BILIARY TREE: Grossly unremarkable. PANCREAS: Grossly unremarkable. SPLEEN: Grossly unremarkable. Small adjacent nodule likely a splenule. ADRENAL GLANDS: Grossly unremarkable. KIDNEYS AND URETERS: No calculi demonstrated. No hydronephrosis. PERITONEUM: No free air. No free fluid. BOWEL: No bowel obstruction. APPENDIX: Visualized and unremarkable. No evidence of acute appendicitis. VESSELS: Abdominal aorta is normal caliber. REPRODUCTIVE ORGANS: Grossly unremarkable URINARY BLADDER: Minimally distended. ABDOMINAL WALL: Unremarkable. BONES: No acute abnormalities. CT/Abdomen/Pelvis without Cont IMPRESSION: No acute findings. Electronically Signed: Tejal Palafox MD at 3:08 EST ,
--- NOTE | 2024-09-17 02:10 | EDS_ITS ---
HPI HPI - GI History of Present Illness Chief Complaint: Abd Pain Detail of Chief Complaint: Abdominal pain Informant: patient Abdominal Pain/Flank Pain Maximum Severity: 8/10 Narrative Narrative: Patient presents with sudden onset of abdominal pain that started around 12:30 AM and woke her up from sleep. Pain is left-sided and radiates to her back. Denies urinary symptoms. Denies hematuria. Denies fever. She has had nausea but no vomiting. She is never had pain like this before. No prior abdominal surgeries. Patient has not missed any menstrual periods and is about the start her period. No history of kidney stones or diverticulitis. One of the . [facility] Medical History (Updated 09/17/24 @ 04:[address] Maury Yuan, DO) Ophthalmic migraine Anxiety Home Medications ?Medication ?Instructions ?Recorded ?Last Taken ?Type lansoprazole 30 mg capsule,delayed 30 mg PO DAILY #14 caps 09/17/24 Unknown Rx release (Prevacid) Allergy/AdvReac Type Severity Reaction Status Date / Time amoxicillin (Amoxicillin) Allergy Vomiting Verified 09/17/24 02:08 Family History Father Hypertension Diabetes CVA (cerebral vascular accident) Other Family history of high cholesterol Surgical History S/P wisdom tooth extraction (~2009) Social History adopted: No household members: spouse housing: house number of children: 0 current occupational status: employed 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 pets and animals: No history of recent travel: No Smoking Status: Never smoker second hand exposure: No alcohol intake: never substance use type: does not use what type of physical activity do you participate in: none seatbelt use: always do you feel safe at home: Yes additional social history: - [employer]- [employer] ROS ROS ED Review of Systems ROS Unobtainable: other Constitutional Constitutional ED: Reports lethargy; Denies chills, fever(s), sweats or weight loss Eyes Eyes: Denies blurry vision, change in vision or diplopia ENT ENT ED: Denies rhinorrhea or sore throat Cardiovascular Cardiovascular: Denies chest pain, orthopnea or racing heartbeat Respiratory/Chest Respiratory/Chest: Denies cough, dyspnea, dyspnea on exertion, orthopnea or sputum Gastrointestinal Gastrointestinal: Reports abdominal pain and nausea; Denies diarrhea or vomiting Genitourinary Genitourinary ED: Denies dysuria, hematuria or urinary frequency Musculoskeletal Musculoskeletal: Denies arthralgias, back pain, myalgias or neck pain Integumentary Denies abscess, Abrasions or rash Neurologic Neurologic: Denies headache(s) or weakness Psychiatric Psychiatric: Denies anxiety, depression or suicidal thoughts Endocrine Endocrinology: Denies polydipsia, polyphagia or polyuria Hematologic/Lymphatic Hematologic/Lymphatic: Denies easy bleeding, easy bruising or lymphadenopathy Allergic/Immunologic Allergic/Immunologic ED: Denies mouth swelling, tongue swelling or urticaria EXAM Physical Exam Const Vital Signs: 09/17/24 02:03 09/17/24 02:06 09/17/24 03:06 Temperature 98 F 98 F 98.4 F Temperature Source Oral Oral Oral Pulse Rate 106 H 99 77 Respiratory Rate 20 H 20 H 16 Blood Pressure 129/82 H 129/82 H 118/80 Blood Pressure Mean 97 97 92 Pulse Ox 100 100 97 Oxygen Delivery Method Room Air Room Air Room Air 09/17/24 04:00 Temperature 98.4 F Temperature Source Oral Pulse Rate 72 Respiratory Rate 16 Blood Pressure 116/77 Blood Pressure Mean 90 Pulse Ox 97 Oxygen Delivery Method Room Air Positive well nourished and well developed General Appearance ED: well developed and NAD HEENT Reports TM's clear and moist mucous membranes normocephalic and atraumatic; Negative for trauma or tenderness Tympanic Membrane ED: Yes TM's clear Eyes PERRL and EOMs intact bilaterally General Eye ED: Negative for pale conjunctiva or scleral icterus Neck no lymphadenopathy, supple and no JVD General: Negative for tenderness Chest Wall inspection of chest normal and palpation of chest normal Chest: Negative for tenderness Resp normal respiratory effort and clear to auscultation bilaterally Effort and Inspection: Negative for respiratory distress or pain with movement Auscultation: Negative for rhonchi, wheezes or diminished lung sounds Cardio regular rate, regular rhythm, S1 normal heart sound, S2 normal heart sound and no murmurs Peripheral Pulses: pulses 2+ throughout GI normal to inspection, nondistended, normoactive bowel sounds, soft to palpation, non-distended and no masses GI Narrative: Mild tenderness left lower quadrant and left upper quadrant. There is no rebound, rigidity, or renal signs. No mass palpated. She does have CVA tenderness on the left Back/Spine no thoracic nor lumbar tenderness Back/Spine Narrative: Left CVA tenderness Extremity normal to inspection General Extremety ED: Negative for edema General Extremity: Negative for edema Neuro oriented x3, CN's II-XII intact bilaterally, no sensory deficits noted and gait normal Sensorium / Orientation: awake, alert, oriented to person, oriented to place and oriented to time Motor Exam: strength 5/5 throughout and strength abnormal Psych mental status grossly normal Skin no rashes or lesions noted and no wounds MDM MDM MDM Narrative Medical decision making narrative: Patient presents with sudden onset of abdominal pain that she describes more as left upper abdomen. She has had nausea. Has not had prior symptoms. IV line established. She was medicated with morphine and Toradol and Zofran. CBC with differential recommend 7.4 with hemoglobin 14.7 platelet count 285. Chemistries unremarkable. LFTs unremarkable. Lipase was normal at 29. was negative. Urinalysis showed 5-10 WBCs and 5-10 RBCs with rare bacteria. CT flank was unremarkable. Patient continues to describe some pain that she rated a 6 out of 10 and therefore I did give her a GI cocktail. This gave her very good pain relief. This point I suspect possibly gastritis as the etiology of her pain. Will start her on Prevacid. Will refer to GI for follow-up. Advised on avoiding spicy and greasy foods as well as acidic foods. Patient advised to return if worsening pain, fever, vomiting, hematemesis or black tarry stool or condition should worsen anyway Lab Data Attestation: I reviewed the patient's lab results. Labs: Laboratory Results - last 24 hr 09/17/24 09/17/24 02:09 02:56 WBC 7.4 RBC 4.94 Hgb 14.7 Hct 43.7 MCV 88.5 MCH 29.8 MCHC 33.6 RDW Std Deviation 40.9 RDW Coeff of Rick 12.7 Plt Count 285 MPV 10.1 Immature Gran % (Auto) 0.300 Neut % (Auto) 57.6 Lymph % (Auto) 30.6 Yancey % (Auto) 7.8 Eos % (Auto) 3.0 Baso % (Auto) 0.7 Absolute Neuts (auto) 4.3 Absolute Lymphs (auto) 2.27 Nucleated RBC % 0 Sodium 141 Potassium 3.4 L Chloride 108 H Carbon Dioxide 25.0 Anion Gap 8 BUN 15 Creatinine 0.77 Estim Creat Clear Calc 107.30 Est GFR (MDRD) Af Amer 111 Est GFR (MDRD) Non-Af 92 BUN/Creatinine Ratio 19.4 Glucose 123 H Calcium 8.6 Total Bilirubin 0.50 AST 11 L ALT 14 Alkaline Phosphatase 97 Total Protein 7.4 Albumin 3.9 Globulin 3.5 Albumin/Globulin Ratio 1.1 Lipase 29 Serum , Qual NEGATIVE Urine Color Yellow Urine Clarity Clear Urine pH 7.0 Ur Specific [place] 1.010 Urine Protein 15 H Urine Glucose (UA) Normal Urine Ketones Negative Urine Occult Blood 25 H Urine Nitrite Negative Urine Bilirubin Negative Urine Urobilinogen Normal Ur Leukocyte Esterase 25 H Urine RBC 5-10 SEEN Urine WBC 5-10 SEEN Ur Squamous Epith Cells 5-10 SEEN Urine Bacteria RARE Urine Mucus 0 SEEN Radiography Diagnostic Testing: Clinical Impression(s) from Imaging Studies Abdomen/Pelvis CT 09/17/24 02:09 IMPRESSION: No acute findings. Electronically Signed: Tejal Palafox MD at 3:08 EST Reading Location ID and State: [address] [place] [address] Tel , Service support , Discharge Plan Triage Chief Complaint: Abd Pain Other Complaint: Nausea/Vomiting ED Provider: Maury Yuan Dx/Rx/DC Orders Clinical Impression: Abdominal pain, Gastritis Instructions: ED Abdominal Pain Unkn Cause Fem, ED Gastritis (Adult) Prescriptions: New lansoprazole [Prevacid] 30 mg capsule,delayed release(DR/EC) 30 mg PO DAILY Qty: 14 0RF Primary Care Provider: Care Physician,No Primary Referrals: Friend,Mina, DO [Med Staff - Active Staff] - 5-7 Days Care Physician,No Primary [Primary Care Provider] - Print Language: Wolof Disposition Disposition: Home, Self Care
[2024-09-17] MEDS: Ondansetron 4 MG/2 ML Vial IV (02:11)
[2024-09-17] MEDS: Ketorolac 30 MG/ML Syringe IV (02:12)
[2024-09-17 02:16] LABS: Absolute Lymphocyte Count 2.27 X10^3/uL (0.83-4.51); Absolute Neutrophil Count 4.3 X10^3/uL (2.0-7.7); Basophil# 0.05 X10^3/uL; Basophil% 0.7 % (0-1); Eosinophil# 0.22 X10^3/uL; Hematocrit 43.7 % (37-47); Hemoglobin 14.7 g/dL (12.0-15.0); Lymphocyte # 2.27 X10^3/ul (0.83-4.51); Lymphocyte % 30.6 % (19-41); Mean Corp Hgb Conc 33.6 g/dL (32-36); Mean Corpuscular Hgb 29.8 pg (27.0-32.0); Mean Corpuscular Volume 88.5 fL (81-99); Mean Platelet Vol. 10.1 fl (6.2-12.0); Monocyte# 0.58 X10^3/uL; Monocyte% 7.8 % (0-10); NRBC Flagged by Analyzer 0 % (0-5); Neutrophil # 4.28 X10^3/uL (2.7-7.7); Neutrophil % 57.6 % (47-70); Platelet Count 285 K/mm3 (150-450); RBC Distribution Width CV 12.7 % (11.6-14.6); RBC Distribution Width SD 40.9 fl (35.1-43.9); Red Blood Count 4.94 M/mm3 (4.2-5.4); White Blood Count 7.4 K/mm3 (4.4-11.0)
[2024-09-17 02:31] LABS: Internal QC Validated? YES +Cl - CLEAR BKGD; Pregnancy, Serum, hCG Quali. NEGATIVE Negative; Record Kit Lot#, Serum Preg. 869296
[2024-09-17 02:38] LABS: ALB/GLOB Ratio 1.1 RATIO (0.9-2.4); AST(SGOT) 11 U/L (15-37); Alanine Aminotransfer ALT/SGPT 14 U/L (13-56); Albumin, Serum 3.9 g/dL (3.2-5.0); Alkaline Phosphatase 97 U/L (45-117); Anion Gap 8 (5-15); BUN 15 mg/dL (7-18); BUN/Creat Ratio 19.4 RATIO (10-20); Calcium,Total 8.6 mg/dL (8.5-10.1); Chloride 108 mmol/L (98-107); Creatinine, Serum 0.77 mg/dL (0.55-1.02); EST Glomerular Filtration Rate 92 mL/min (>60); Est Glom Filt Rate - Afr Amer 111 mL/min (>60); Globulin 3.5 g/dL (2.2-4.2); Glucose 123 mg/dL (74-106); Lipase 29 U/L (13-75); Potassium 3.4 mmol/L (3.5-5.1); Protein, Total 7.4 g/dL (6.4-8.2); Sodium Level 141 mmol/L (136-145)
[2024-09-17 03:02] LABS: Color, Urine Yellow (Yellow); Glucose, Dipstick Normal (Normal); Ketone-Dipstick Negative (Negative); Leukocyte Esterase-Dipstick 25 /ul (Negative); Mucous, Urine 0 SEEN /hpf (<or=2+); Nitrite-Dipstick Negative (Negative); Occult Blood-Urine 25 /ul (Negative); Protein-Dipstick 15 mg/dl (Negative); Urine Bilirubin Dipstick Negative (Negative); Urine Clarity Clear (Clear); Urine Urobilinogen Normal (Normal)
[2024-09-17 03:06] VITALS: BP 118/80; PULSE 77; RESP 16; TEMP 36.9; O2SAT 97
[2024-09-17 03:33] LABS: Bacteria RARE /hpf (None Seen); Red Blood Cells-Urine 5-10 SEEN /hpf (0-5); Squamous Epithelial Cells - UA 5-10 SEEN /hpf (5-10); White Blood Cells 5-10 SEEN /hpf (0-5)
[2024-09-17] MEDS: Lidocaine 2% Viscous15 ML UDC 15 ML PO (03:59)
[2024-09-17] MEDS: Mag Hydrox/Al Hydrox/Simeth 30 ML UDC PO (03:59)
[2024-09-17 04:00] VITALS: BP 116/77; PULSE 72; RESP 16; TEMP 36.9; O2SAT 97
[2024-09-17 04:44] VITALS: BP 100/66; PULSE 87; RESP 18; TEMP 36.6; O2SAT 100
== END 2024-09-17 04:45 | disposition home or self-care (01) ==
PROVIDERS: Emergency Provider Emergency Medicine; Visit Provider Emergency Medicine
DX: K29.70 Gastritis, unspecified, without bleeding (principal); Z88.0 Allergy status to penicillin
CPT/HCPCS: 74176; 80053; 81001; 83690; 84703; 85025; 96374; 96375; 99283; A4216; J2405

== ENCOUNTER → 2025-03-28 | Outpatient (CLI) | payer OTHER, SELFPAY ==
[2025-03-28 12:49] LABS: ALB/GLOB Ratio 1.6 RATIO (0.9-2.4); AST(SGOT) 17 U/L (<=31); Alanine Aminotransfer ALT/SGPT 8 U/L (<=34); Albumin, Serum 4.3 g/dL (3.5-5.0); Alkaline Phosphatase 87 U/L (35-104); Anion Gap 11 (5-15); BUN 10 mg/dL (4-19); BUN/Creat Ratio 13.3 RATIO (10-20); Calcium,Total 9.8 mg/dL (7.6-11.0); Carbon Dioxide 24.6 mmol/L (21.0-32.0); Chloride 104 mmol/L (98-108); Creatinine, Serum 0.76 mg/dL (0.70-1.20); EST Glomerular Filtration Rate 107 (>60); Globulin 2.8 g/dL (2.2-4.2); Glucose 88 mg/dL (70-99); Potassium 4.2 mmol/L (3.3-5.1); Sodium Level 140 mmol/L (133-145); Total Bilirubin 0.62 mg/dL (0.00-1.30); Vitamin D,25 Hydroxy 28.8 ng/mL (30-100)
== END | disposition home or self-care (01) ==
PROVIDERS: Referring Provider Nurse Practitioner Family; Visit Provider Nurse Practitioner Family
DX: R53.83 Other fatigue (principal)
CPT/HCPCS: 36415; 80053; 82306; 84439; 84443

== ENCOUNTER 2025-08-17 21:47 | Emergency (ER) | payer OTHER, SELFPAY ==
[2025-08-17 21:47] VITALS: BP 133/97; PULSE 112; RESP 20; TEMP 36.2; O2SAT 100; BMI 22.2
--- NOTE | 2025-08-17 21:56 | CT_ITS ---
PROCEDURE: CT/Soft Tissue Neck WITH Contrast
--- NOTE | 2025-08-17 21:57 | EX.ED.DYSGE1 ---
HPI History of Present Illness Chief Complaint: Sore Throat Detail of Chief Complaint: Throat pain and difficulty swallowing Informant: patient Narrative Narrative: Patient presents to the emergency department with complaint of pain in her throat and difficulty swallowing. She has had this sensation for about 3 days. She was seen in urgent care today and told she had a goiter but there was no plan going forward for any type of imaging or blood work from what the patient tells me. Patient does have history of anxiety but has never had symptoms like this to indicate anxiety. She has had no fever or chills or sweats. No history of thyroid problems. [facility] Medical History Environmental allergies Ophthalmic migraine Anxiety Home Medications ?Medication ?Instructions ?Recorded ?Last Taken ?Type hydroxyzine HCl 10 mg tablet 10 mg PO BID PRN anxiety #30 tabs 03/28/25 Unknown Rx Allergy/AdvReac Type Severity Reaction Status Date / Time amoxicillin (Amoxicillin) Allergy Vomiting Verified 08/17/25 21:47 Family History Father Hypertension Diabetes CVA (cerebral vascular accident) Other Family history of high cholesterol Surgical History S/P wisdom tooth extraction (~2009) Social History adopted: No household members: spouse housing: house number of children: 0 current occupational status: employed 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 pets and animals: No history of recent travel: No Smoking Status: Never smoker second hand exposure: No alcohol intake: never substance use type: does not use what type of physical activity do you participate in: none seatbelt use: always do you feel safe at home: Yes additional social history: - [employer]- [employer] ROS ROS ED Review of Systems ROS Unobtainable: other Constitutional Constitutional ED: Reports lethargy; Denies chills, fever(s), sweats or weight loss Eyes Eyes: Denies blurry vision, change in vision or diplopia ENT ENT ED: Reports other Details: Throat pain ; Denies rhinorrhea or sore throat Cardiovascular Cardiovascular: Denies chest pain, orthopnea or racing heartbeat Respiratory/Chest Respiratory/Chest: Denies cough, dyspnea, dyspnea on exertion, orthopnea or sputum Gastrointestinal Gastrointestinal: Denies abdominal pain, diarrhea, nausea or vomiting Genitourinary Genitourinary ED: Denies dysuria, hematuria or urinary frequency Musculoskeletal Musculoskeletal: Denies arthralgias, back pain, myalgias or neck pain Integumentary Denies abscess, Abrasions or rash Neurologic Neurologic: Denies headache(s) or weakness Psychiatric Psychiatric: Denies anxiety, depression or suicidal thoughts Endocrine Endocrinology: Denies polydipsia, polyphagia or polyuria Hematologic/Lymphatic Hematologic/Lymphatic: Denies easy bleeding, easy bruising or lymphadenopathy Allergic/Immunologic Allergic/Immunologic ED: Denies mouth swelling, tongue swelling or urticaria EXAM Physical Exam Const Vital Signs: 08/17/25 21:47 08/17/25 21:52 08/17/25 22:03 Temperature 97.2 F L Temperature Source Temporal Pulse Rate 112 H 82 Respiratory Rate 20 H 16 Respiratory Effort Normal Non-Labored Respiratory Pattern Normal Blood Pressure 133/97 H 109/81 H Blood Pressure Mean 109 90 Pulse Ox 100 99 Oxygen Delivery Method Room Air Room Air Positive well nourished and well developed General Appearance ED: well developed and NAD HEENT Reports TM's clear and moist mucous membranes HEENT Narrative: Mild fullness over the thyroid. Slightly tender to palpation. There is no erythema or warmth. There is no crepitus noted over the trachea. Pharynx not erythematous. Uvula midline. No trismus. normocephalic and atraumatic; Negative for trauma or tenderness Tympanic Membrane ED: Yes TM's clear Eyes PERRL and EOMs intact bilaterally General Eye ED: Negative for pale conjunctiva or scleral icterus Neck no lymphadenopathy, supple and no JVD General: Negative for tenderness Chest Wall inspection of chest normal and palpation of chest normal Chest: Negative for tenderness Resp normal respiratory effort and clear to auscultation bilaterally Effort and Inspection: Negative for respiratory distress or pain with movement Auscultation: Negative for rhonchi, wheezes or diminished lung sounds Cardio regular rate, regular rhythm, S1 normal heart sound, S2 normal heart sound and no murmurs Peripheral Pulses: pulses 2+ throughout GI normal to inspection, nondistended, normoactive bowel sounds, soft to palpation, non-tender, non-distended and no masses Back/Spine no CVA tenderness and no thoracic nor lumbar tenderness Extremity normal to inspection General Extremety ED: Negative for edema General Extremity: Negative for edema Neuro oriented x3, CN's II-XII intact bilaterally, no sensory deficits noted and gait normal Sensorium / Orientation: awake, alert, oriented to person, oriented to place and oriented to time Motor Exam: strength 5/5 throughout and strength abnormal Psych mental status grossly normal Skin no rashes or lesions noted and no wounds MDM MDM MDM Narrative Medical decision making narrative: Patient presents with sensation of difficulty swallowing and like there is a lump in her throat. Seen in urgent care earlier in the day. IV line established. CBC with differential obtained showed a white count of 9.5 with hemoglobin 15 and platelet count of 285. Chemistries unremarkable. TSH was elevated 12.1. Free T4 was 1.3 and hCG was negative. CT scan of the neck with IV contrast ordered and results of which are currently pending. Care of patient turned over to evening physician awaiting CT results and final disposition. Lab Data Attestation: I reviewed the patient's lab results. Labs: Laboratory Results - last 24 hr 08/17/25 22:01 WBC 9.5 RBC 5.08 Hgb 15.0 Hct 45.3 MCV 89.2 MCH 29.5 MCHC 33.1 RDW Std Deviation 42.1 RDW Coeff of Rick 12.8 Plt Count 285 MPV 10.2 Immature Gran % (Auto) 0.300 Neut % (Auto) 54.9 Lymph % (Auto) 33.4 Cannon % (Auto) 8.6 Eos % (Auto) 2.1 Baso % (Auto) 0.7 Absolute Neuts (auto) 5.2 Absolute Lymphs (auto) 3.17 Nucleated RBC % 0 Sodium 141 Potassium 3.9 Chloride 102 Carbon Dioxide 27.4 Anion Gap 11 BUN 12 Creatinine 0.70 Estim Creat Clear Calc 119.46 Est GFR (MDRD) Non-Af 116 BUN/Creatinine Ratio 17.2 Glucose 97 Calcium 9.6 TSH 12.100 H Free T4 1.30 Serum , Qual NEGATIVE Discharge Plan Triage Chief Complaint: Sore Throat Other Complaint: Other, Pain/Inj ED Provider: Maury Yuan Dx/Rx/DC Orders Prescriptions: No Action hydroxyzine HCl 10 mg tablet 10 mg PO BID PRN (Reason: anxiety) Qty: 30 6RF Primary Care Provider: Care Physician,Shania Primary Referrals: Care Physician,No Primary [Primary Care Provider, Medical] Print Language: Tajik
[2025-08-17 22:03] VITALS: BP 109/81; PULSE 82; RESP 16; O2SAT 99
[2025-08-17 22:20] LABS: Hematocrit 45.3 % (37-47); Hemoglobin 15.0 g/dL (12.0-15.0); Immature Granulocytes Count 0.030 X10^3/uL (0.0-0.0); Mean Corp Hgb Conc 33.1 g/dL (32-36); Mean Corpuscular Volume 89.2 fL (81-99); Mean Platelet Vol. 10.2 fl (6.2-12.0); NRBC Flagged by Analyzer 0 % (0-5); Platelet Count 285 K/mm3 (150-450); RBC Distribution Width CV 12.8 % (11.6-14.6); RBC Distribution Width SD 42.1 fl (35.1-43.9); Red Blood Count 5.08 M/mm3 (4.2-5.4); White Blood Count 9.5 K/mm3 (4.4-11.0)
[2025-08-17 22:31] LABS: Internal QC Validated? YES +Cl - CLEAR BKGD; Pregnancy, Serum, hCG Quali. NEGATIVE Negative; Record Kit Lot#, Serum Preg. 0000980607
[2025-08-17 22:50] LABS: Anion Gap 11 (5-15); BUN 12 mg/dL (4-19); BUN/Creat Ratio 17.2 RATIO (10-20); Calcium,Total 9.6 mg/dL (7.6-11.0); Carbon Dioxide 27.4 mmol/L (21.0-32.0); Chloride 102 mmol/L (98-108); Estimated Creatinine Clearance 119.46 ml/min (50-250); Glucose 97 mg/dL (70-99); Potassium 3.9 mmol/L (3.3-5.1)
[2025-08-18] VITALS: BP 131/83; PULSE 82; RESP 18; O2SAT 98
[2025-08-18 00:35] VITALS: BP 124/74; PULSE 78; RESP 16; TEMP 36.6; O2SAT 97
== END 2025-08-18 00:44 | disposition home or self-care (01) ==
PROVIDERS: Emergency Provider Emergency Medicine; Visit Provider Emergency Medicine
DX: J02.9 Acute pharyngitis, unspecified (principal); F41.9 Anxiety disorder, unspecified; E04.1 Nontoxic single thyroid nodule
CPT/HCPCS: 70491; 80048; 84439; 84443; 84703; 85025; 99285; Q9967; A4216

== ENCOUNTER → 2025-09-13 | Outpatient (CLI) | payer OTHER, SELFPAY ==
--- OUTSIDE RECORDS SUMMARY | 2025-09-13 09:55 | XMS RPT_ITS | CCD ---
Author Organization [facility] Inform ion [facility] Care Team Providers Care Condenser Winder Name Role Phone Care Physician, No Primary Primary Care Provider Unavailable Care Physician, No Primary Referring Provider Un available Issa DEMPSEY-CAlysha Attending Provider Flavio LINEN SORTER-CLynn Attending Provider Flavio LINEN SORTER-C, Lynn Referring Provider [phone] Lynn Muniz Attending Unavailable Lynn Muniz Referring Unavailable Care Physician, No Primary Primary Care Unava ilable Ungur, Remus Attending Unavailable Care Physician, No Primary Primary Care Unava ilable Ungur, Remus Attending Unavailable Care Physician, No Primary Referring Unava ilable Lynn Muniz Attending Unavailable Magi Mckenzie Attending Unavailable Allergies Allergy Classification Reported Allergen(s) Allergy Type Date of Onset Reaction(s) Facility (2 sources) Amoxicillin Drug Allergy 03-28-2025 Vomiting [facility] (1 source) Amoxicillin Drug Allergy 08-17-2025 [facility] Repository Medications Current Medications Medication Drug Class(es) Dates Sig (Normalized) Sig (Original) hydrOXYzine hydrochloride 10 mg oral tablet (12 sources) Antihistamine Start: 03-28-2025 take 1 tablet by mouth twice daily as needed for anxiety Hydroxyzine Hcl 10 mg tablet Active 10 mg PO TWICE A DAY as needed for anxiety March 28, 2025 10:15am Start: 12-25-2024 End: 03-28-2025 take 1 tablet by mouth three to four times daily as needed for anxiety Hydroxyzine Hcl 10 mg tablet Discontinued 10 mg PO 3 to 4 times per day as needed for anxiety December 25, 2024 11:19pm March 28, 2025 10:15am Start: 12-07-2022 End: 09-17-2024 take 1 tablet by mouth three to four times daily as needed for anxiety Hydroxyzine Hcl 10 mg tablet Discontinued 10 mg PO 3 to 4 times per day as needed for anxiety March 21, 2024 8:27am September 17, 2024 3:08am Completed/Discontinued Medications Medication Drug Class(es) Dates Sig (Normalized) Sig (Original) acetaminophen 325 mg / oxyCODONE hydrochloride 5 mg oral tablet (2 sources) Opioid Agonist Start: 03-09-2020 End: 03-16-2020 Oxycodone-Acetamin ophen 1 TABLET tablet Discontinued 1 - 2 {tbl} PO EVERY 6 HOURS NEEDED as needed for Pain 30 04March 09, 2020 March 15, 2020 12:00am March 16, 2020 12:02am azithromycin 250 mg oral tablet (6 sources) Macrolide Antimicrobial Start: 03-04-2025 End: 03-09-2025 take 2 tablets by mouth once daily, then take 1 tablet by mouth once daily at mealtime Azithromycin 250 mg tablet Discontinued 250 mg PO daily 6 March 04, 2025 4:52pm March 08, 2025 12:00am March 09, 2025 12:10am 2 po qd for 1 day then 1 po qd for 4 days with food or after eating Start: 12-25-2024 End: 12-30-2024 take 2 tablets by mouth once daily, then take 1 tablet by mouth once daily at mealtime Azithromycin 250 mg tablet Discontinued 250 mg PO daily 6 December 25, 2024 12:00am December 29, 2024 12:00am December 30, 2024 12:14am 2 po qd for 1 day then 1 po qd for 4 days with food or after eating Start: 06-29-2021 End: 07-04-2021 take 2 tablets by mouth once daily, then take 1 tablet by mouth once daily at mealtime Azithromycin 250 mg tablet Discontinued 250 mg PO daily 03 21June 29, 2021 12:00am July 03, 2021 12:00am July 04, 2021 12:01am 2 po qd for 1 day then 1 po qd for 4 days with food or after eating Blood-Glucose Meter (Accu-Chek Guide Glucose Meter) misc (2 sources) Start: 12-04-2019 End: 05-28-2020 Blood-Glucose Meter (Accu-Chek Guide Glucose Meter) misc Discontinued 0 .ROUTE .MEDSUPPLY 1 December 04, 2019 1:00am May 28, 2020 1:37pm As directed Blood-Glucose Meter (T[employer]etrack Blood Glucose System) kit (2 sources) Start: 12-04-2019 End: 12-04-2019 Blood-Glucose Meter (T[employer]etrack Blood Glucose System) kit Discontinued 0 .ROUTE .MEDSUPPLY December 04, 2019 1:00am December 04, 2019 4:22pm As directed cefdinir 300 mg oral capsule (2 sources) Cephalosporin Antibacterial Start: 07-10-2024 End: 09-17-2024 take 1 capsule by mouth twice daily Cefdinir 300 mg capsule Discontinued 300 mg PO TWICE A DAY July 10, 2024 12:00am September 17, 2024 3:08am cefuroxime 500 mg oral tablet (8 sources) Cephalosporin Antibacterial Start: 01-21-2023 End: 07-10-2024 take 1 tablet by mouth twice daily Cefuroxime Axetil 500 mg tablet Discontinued 500 mg PO TWICE A DAY January 21, 2023 12:00am July 10, 2024 4:26pm Start: 08-31-2022 End: 12-07-2022 take 1 tablet by mouth twice daily Cefuroxime Axetil 500 mg tablet Discontinued 500 mg PO TWICE A DAY August 31, 2022 5:33pm December 07, 2022 7:35pm Start: 03-09-2019 End: 08-13-2019 take 1 tablet by mouth twice daily Cefuroxime Axetil 500 mg tablet Discontinued 500 mg PO TWICE A DAY March 09, 2019 12:00am August 13, 2019 1:59pm Start: 11-17-2018 End: 11-27-2018 take 1 tablet by mouth every twelve hours Cefuroxime Axetil 250 mg tablet Discontinued 250 mg PO Q12H 05 08November 17, 2018 1:00am November 26, 2018 1:00am November 27, 2018 1:09am clindamycin 300 mg oral capsule (2 sources) Lincosamide Antibacterial Start: 03-20-2020 End: 03-27-2020 take 1 capsule by mouth twice daily Clindamycin Hcl 300 mg capsule Discontinued 300 mg PO TWICE A DAY 29 04March 20, 2020 12:00March 26, 2020 12:00am March 27, 2020 12:02am docusate sodium 100 mg oral capsule (2 sources) Start: 03-09-2020 End: 05-28-2020 take 1 capsule by mouth twice daily Docusate Sodium 100 MG capsule Discontinued 100 mg PO TWICE A DAY March 09, 2020 12:00am May 28, 2020 1:37pm Norgestimate-Ethiny l Estradiol (2 sources) Progestin, Estrogen Start: 07-26-2013 End: 04-13-2018 Norgestimate-Ethin yl Estradiol 1 EACH tablet Discontinued 1 NMA PO DAILY July 26, 2013 12:00am April 13, 2018 2:21pm ibuprofen 600 mg oral tablet (2 sources) Nonsteroidal Anti-inflammatory Drug Start: 07-26-2013 End: 04-13-2018 take 1 tablet by mouth every eight hours Ibuprofen 600 MG tablet Discontinued 600 mg PO EVERY 8 HOURS July 26, 2013 12:00am April 13, 2018 2:20pm lansoprazole 30 mg delayed release oral capsule (2 sources) Proton Pump Inhibitor Start: 09-17-2024 End: 12-25-2024 take 1 capsule by mouth once daily Lansoprazole (Prevacid) 30 mg capsule,delayed release(DR/EC) Discontinued 30 mg PO DAILY September 17, 2024 1:00am December 25, 2024 8:12pm naproxen 250 mg oral tablet (2 sources) Nonsteroidal Anti-inflammatory Drug Start: 03-09-2020 End: 05-28-2020 take 250-500 mg by mouth every eight hours as needed for pain Naproxen 250 MG tablet Discontinued 250 - 500 mg PO EVERY 8 HOURS NEEDED as needed for MILD PAIN March 09, 2020 12:00am May 28, 2020 1:37pm ondansetron 8 mg oral tablet (6 sources) Serotonin-3 Receptor Antagonist Start: 12-07-2022 End: 01-12-2023 take 1 tablet by mouth every twelve hours Ondansetron Hcl 8 mg tablet Discontinued 8 mg PO Q12H December 07, 2022 1:00am January 12, 2023 1:16pm Start: 10-10-2018 End: 08-13-2019 take 1 tablet by mouth every eight hours as needed for nausea Ondansetron 4 MG tablet Discontinued 4 mg PO EVERY 8 HOURS NEEDED as needed for Nausea October 10, 2018 1:00am August 13, 2019 1:59pm Start: 01-11-2017 End: 04-13-2018 take 1 tablet by mouth every eight hours as needed for nausea Ondansetron 4 MG tablet Discontinued 4 mg PO EVERY 8 HOURS NEEDED as needed for Nausea January 11, 2017 12:00am April 13, 2018 2:21pm Pnv #[id number]-Rzuhk Acid-Omega3 30 mg iron-10 mg iron-1 mg capsule (2 sources) Start: 08-13-2019 End: 06-29-2021 Pnv #[id number]-[id number] Acid-Omega3 30 mg iron-10 mg iron-1 mg capsule Discontinued 1 NMA PO DAILY August 13, 2019 12:00am June 29, 2021 6:44pm predniSONE 20 mg oral tablet (6 sources) Start: 12-25-2024 End: 03-28-2025 take 2 tablets by mouth once daily Prednisone 20 mg tablet Discontinued 40 mg PO DAILY March 04, 2025 4:52pm March 28, 2025 9:55am Start: 07-26-2013 End: 04-13-2018 take 3 tablets by mouth once daily Prednisone 20 MG tablet Discontinued 60 mg PO DAILY July 26, 2013 12:00am April 13, 2018 2:21pm Problems Active Problems Problem Classification Problem Date Documented Da te Episodic/Chronic Anxiety disorders (7 sources) Anxiety; Translations: [Anxiety disorder, unspecified] Onset: 03-28-2025 03-21-2024 Chronic Comment on above: vistaril prn Chronic obstructive pulmonary disease and bronchiectasis (2 sources) Bronchitis; Translations: [Bronchitis, not specified as acute or chronic] 12-25-2024 Episodic Diabetes or abnormal glucose tolerance complicating ; childbirth; or the puerperium (2 sources) Gestational diabetes mellitus complicating ; Translations: [Gestational diabetes mellitus in , unspecified control] 05-30-2020 Episodic Comment on above: diet controlled, dian n 34 week growth us. delivery by 40 Gastritis and duodenitis (2 sources) Gastritis; Translations: [Gastritis, unspecified, without bleeding] 09-25-2024 Episodic Headache; including migraine (2 sources) Migraine with aura; Translations: [Migraine with aura, not intractable, without status migrainosus] 01-12-2023 Chronic Menstrual disorders (2 sources) Ovulation bleeding; Translations: [Ovulation bleeding] 03-21-2024 Chronic Comment on above: pelvic us, 07/29 nor mal us Other female genital disorders (2 sources) Premenstrual tension syndrome; Translations: [Premenstrual tension syndrome] 03-28-2025 Chronic Other and delivery including normal (6 sources) Normal ; Translations: [Encounter for supervision of normal first , unspecified trimester] 05-30-2020 Episodic Comment on above: PRR EVAN 03/08/20 20 boy Spouse Raffy khan, ca rrier and NTD at this time. anatomy us normal Other upper respiratory infections (2 sources) Maxillary sinusitis; Translations: [Chronic maxillary sinusitis] 11-12-2019 Chronic Other upper respiratory infections (7 sources) Acute maxillary sinusitis; Translations: [Acute maxillary sinusitis, unspecified] Onset: 08-26-2025 07-10-2024 Episodic Thyroid disorders (1 source) Nontoxic goiter, unspecified; Translations: [Nontoxic goiter, unspecified] Onset: 08-17-2025 Chronic Unclassified (1 source) Foreign body sensation, throat; Translations: [Foreign body sensation, throat] Onset: 08-17-2025 Past or Other Problems Problem Classification Problem Date Documented Da te Episodic/Chronic Abdominal pain (3 sources) Abdominal pain; Translations: [Unspecified abdominal pain] Onset: 10-18-2024 09-25-2024 Episodic Malaise and fatigue (3 sources) Fatigue; Translations: [Other fatigue] Onset: 04-03-2025 03-28-2025 Episodic Other screening for suspected conditions (not mental disorders or infectious disease) (1 source) Encounter for screening for malignant neoplasm of cervix; Translations: [Encounter for screening for malignant neoplasm of cervix] Onset: 03-28-2025 Episodic Results Test Name Value Interpretation Reference Range Facility Basic Metabolic Profile (BMP )on 08-17-2025 BUN/CRE 17.2 RATIO Normal 08-05 [facility] Comment on above: Performed By: #### L 100.0100, L700.6800, L500.2500, L501.9520, L506.0400 ####[facility] [address] [place], [address] Calcium [Mass/Vol] 9.6 mg/dL Normal 7.6-11.0 [facility] Comment on above: Performed By: #### L 100.0100, L700.6800, L500.2500, L501.9520, L506.0400 ####[facility] [address] [place], [address] Chloride [Moles/Vol] 102 mmol/L Normal 98-108 [facility] Comment on above: Performed By: #### L 100.0100, L700.6800, L500.2500, L501.9520, L506.0400 ####[facility] [address] [place], [address] CO2 [Moles/Vol] 27.4 mmol/L Normal 21.0-32.0 [facility] Comment on above: Performed By: #### L 100.0100, L700.6800, L500.2500, L501.9520, L506.0400 ####[facility] [address] [place], [address] Creatinine [Mass/Vol] 0.70 mg/dL Normal 0.70-1.20 [facility] Comment on above: Performed By: #### L 100.0100, L700.6800, L500.2500, L501.9520, L506.0400 ####[facility] [address] [place], [address] ECRCL 119.46 ml/min Normal 50-250 [facility] Comment on above: Performed By: #### L 100.0100, L700.6800, L500.2500, L501.9520, L506.0400 ####[facility] [address] [place], [address] GAP 11 Normal 5-15 [facility] Comment on above: Performed By: #### L 100.0100, L700.6800, L500.2500, L501.9520, L506.0400 ####[facility] [address] [place], [address] GFR/1.73 sq M.predicted among non-blacks MDRD (S/P/Bld) [Vol rate/Area] 116 mL/min/{1.73_m2} Normal >60 [facility] Comment on above: Result Comment: mL/m in/1.73m2 CKD-EPI Creatinine Equation (2020) Performed By: #### L 100.0100, L700.6800, L500.2500, L501.9520, L506.0400 ####[facility] [address] [place], [address] Glucose [Mass/Vol] 97 mg/dL Normal 70-99 [facility] Comment on above: Performed By: #### L 100.0100, L700.6800, L500.2500, L501.9520, L506.0400 ####[facility] [address] [place], [address] Potassium [Moles/Vol] 3.9 mmol/L Normal 3.3-5.1 [facility] Comment on above: Performed By: #### L 100.0100, L700.6800, L500.2500, L501.9520, L506.0400 ####[facility] [address] [place], [address] Sodium [Moles/Vol] 141 mmol/L Normal 133-145 [facility] Comment on above: Performed By: #### L 100.0100, L700.6800, L500.2500, L501.9520, L506.0400 ####[facility] [address] [place], [address] Urea nitrogen [Mass/Vol] 12 mg/dL Normal 4-19 [facility] Comment on above: Performed By: #### L 100.0100, L700.6800, L500.2500, L501.9520, L506.0400 ####[facility] [address] [place], [address] CBC W/Diff, Automatedon 11-0 -2024 Absolute Lymph 3.17 X10 3/uL Normal 0.83-4.51 [facility] Comment on above: Performed By: #### L 100.0100, L700.6800, L500.2500, L501.9520, L506.0400 ####[facility] [address] [place], [address] Absolute Neut 5.2 X10 3/uL Normal 2.0-7.7 [facility] Comment on above: Performed By: #### L 100.0100, L700.6800, L500.2500, L501.9520, L506.0400 ####[facility] [address] [place], [address] Basophils/100 WBC (Bld) 0.7 % Normal 0-1 [facility] Comment on above: Performed By: #### L 100.0100, L700.6800, L500.2500, L501.9520, L506.0400 ####[facility] [address] [place], [address] Eosinophils/100 WBC (Bld) 2.1 % Normal 0-5 [facility] Comment on above: Performed By: #### L 100.0100, L700.6800, L500.2500, L501.9520, L506.0400 ####[facility] [address] [place], [address] Erythrocyte distribution width (RBC) [Ratio] 12.8 % Normal 11.6-14.6 [facility] Comment on above: Performed By: #### L 100.0100, L700.6800, L500.2500, L501.9520, L506.0400 ####[facility] [address] [place], [address] Hematocrit (Bld) [Volume fraction] 45.3 % Normal 37-47 [facility] Comment on above: Performed By: #### L 100.0100, L700.6800, L500.2500, L501.9520, L506.0400 ####[facility] [address] [place], [address] Hemoglobin (Bld) [Mass/Vol] 15.0 g/dL Normal 12.0-15.0 [facility] Comment on above: Performed By: #### L 100.0100, L700.6800, L500.2500, L501.9520, L506.0400 ####[facility] [address] [place], [address] IG% 0.300 Normal 0.0-0.9 [facility] Comment on above: Result Comment: IG% - Immature Granulocytes (promyelocytes, myelocytes and metamyelocytes) > 1% indicates that a LEFT SHIFT is Present. Performed By: #### L 100.0100, L700.6800, L500.2500, L501.9520, L506.0400 ####[facility] [address] [place], [address] Lymphocytes/100 WBC (Bld) 33.4 % Normal 19-41 [facility] Comment on above: Performed By: #### L 100.0100, L700.6800, L500.2500, L501.9520, L506.0400 ####[facility] [address] [place], [address] MCH (RBC) [Entitic mass] 29.5 pg Normal 27.0-32.0 [facility] Comment on above: Performed By: #### L 100.0100, L700.6800, L500.2500, L501.9520, L506.0400 ####[facility] [address] [place], [address] MCHC (RBC) [Mass/Vol] 33.1 g/dL Normal 32-36 [facility] Comment on above: Performed By: #### L 100.0100, L700.6800, L500.2500, L501.9520, L506.0400 ####[facility] [address] [place], [address] MCV (RBC) [Entitic vol] 89.2 fL Normal 81-99 [facility] Comment on above: Performed By: #### L 100.0100, L700.6800, L500.2500, L501.9520, L506.0400 ####[facility] [address] [place], [address] Monocytes/100 WBC (Bld) 8.6 % Normal 0-10 [facility] Comment on above: Performed By: #### L 100.0100, L700.6800, L500.2500, L501.9520, L506.0400 ####[facility] [address] [place], [address] Neutrophils/100 WBC (Bld) 54.9 % Normal 47-70 [facility] Comment on above: Performed By: #### L 100.0100, L700.6800, L500.2500, L501.9520, L506.0400 ####[facility] [address] [place], [address] Nucleated RBC (Bld) [#/Vol] 0 10*3/uL Normal 0-5 [facility] Comment on above: Performed By: #### L 100.0100, L700.6800, L500.2500, L501.9520, L506.0400 ####[facility] [address] [place], [address] Platelet mean volume (Bld) [Entitic vol] 10.2 fL Normal 6.2-12.0 [facility] Comment on above: Performed By: #### L 100.0100, L700.6800, L500.2500, L501.9520, L506.0400 ####[facility] [address] [place], [address] Platelets (Bld) [#/Vol] 285 10*3/uL Normal 150-450 [facility] Comment on above: Performed By: #### L 100.0100, L700.6800, L500.2500, L501.9520, L506.0400 ####[facility] [address] [place], [address] RBC (Bld) [#/Vol] 5.08 10*6/uL Normal 4.2-5.4 [facility] Comment on above: Performed By: #### L 100.0100, L700.6800, L500.2500, L501.9520, L506.0400 ####[facility] [address] [place], [address] RDW SD 42.1 fl Normal 35.1-43.9 [facility] Comment on above: Performed By: #### L 100.0100, L700.6800, L500.2500, L501.9520, L506.0400 ####[facility] [address] [place], [address] WBC (Bld) [#/Vol] 9.5 10*3/uL Normal 4.4-11.0 [facility] Comment on above: Performed By: #### L 100.0100, L700.6800, L500.2500, L501.9520, L506.0400 ####[facility] [address] [place], [address] Emergency Department Summary on 08-17-2025 Emergency Department Summary [facility] Medical Records Department [address] [place] [address] Emergency Department Summary 08/17/25 MR#: [id number] Acct: [id number] Name: LIZZETH WHITT Rep #: [id number] : 1990 35 From: Maury Yuan DO PCP: Care Physician,No Primary Status:REG ER Location: ED ADDENDUM by Casey Win DO on 08/18/25 at 0037 Patient was signed out to me while awaiting official report of the CT soft tissue neck. This showed a subcentimeter cystic nodule on the right lobe of the thyroid which could be the cause of the patient's symptoms. However it did not show signs of epiglottitis peritonsillar abscess hematoma or airway compromise. This correlates with the patient's physical exam. Therefore at this time there is no need for further intervention in the ER and she can follow-up with her family doctor and/or endocrinology as an outpatient to discuss further evaluation of her thyroid nodule as well as elevated TSH value. 08/18/2536 Cosigner Signature (if applicable): cc: No Primary Care Physician * Signed HPI History of Present Illness Chief Complaint: Sore Throat Detail of Chief Complaint: Throat pain and difficulty swallowing Informant: patient Narrative Narrative: Patient presents to the emergency department with complaint of pain in her throat and difficulty swallowing. She has had this sensation for about 3 days. She was seen in urgent care today and told she had a goiter but there was no plan going forward for any type of imaging or blood work from what the patient tells me. Patient does have history of anxiety but has never had symptoms like this to indicate anxiety. She has had no fever or chills or sweats. No history of thyroid problems. [facility] Medical History Environmental allergies Ophthalmic migraine Anxiety Home Medications ???Medication ???Instructions ???Recorded ???Last Taken ???Type hydroxyzine HCl 10 mg tablet 10 mg PO BID PRN anxiety #30 tabs 03/28/25 Unknown Rx Allergy/AdvReac Type Severity Reaction Status Date / Time amoxicillin (Amoxicillin) Allergy Vomiting Verified 08/17/25 21:47 Family History Father Hypertension Diabetes CVA (cerebral vascular accident) Other Family history of high cholesterol Surgical History S/P wisdom tooth extraction ( 2009) Social History adopted: No household members: spouse housing: house number of children: 0 current occupational status: employed 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 pets and animals: No history of recent travel: No Smoking Status: Never smoker second hand exposure: No alcohol intake: never substance use type: does not use what type of physical activity do you participate in: none seatbelt use: always do you feel safe at home: Yes additional social history: - Raffy- [place] ROS ROS ED Review of Systems ROS Unobtainable: other Constitutional Constitutional ED: Reports lethargy; Denies chills, fever(s), sweats or weight loss Eyes Eyes: Denies blurry vision, change in vision or diplopia ENT ENT ED: Reports other Details: Throat pain ; Denies rhinorrhea or sore throat Cardiovascular Cardiovascular: Denies chest pain, orthopnea or racing heartbeat Respiratory/Chest Respiratory/Chest: Denies cough, dyspnea, dyspnea on exertion, orthopnea or sputum Gastrointestinal Gastrointestinal: Denies abdominal pain, diarrhea, nausea or vomiting Genitourinary Genitourinary ED: Denies dysuria, hematuria or urinary frequency Musculoskeletal Musculoskeletal: Denies arthralgias, back pain, myalgias or neck pain Integumentary Denies abscess, Abrasions or rash Neurologic Neurologic: Denies headache(s) or weakness Psychiatric Psychiatric: Denies anxiety, depression or suicidal thoughts Endocrine Endocrinology: Denies polydipsia, polyphagia or polyuria Hematologic/Lymphati c Hematologic/Lymphati c: Denies easy bleeding, easy bruising or lymphadenopathy Allergic/Immunologic Allergic/Immunologic ED: Denies mouth swelling, tongue swelling or urticaria EXAM Physical Exam Const Vital Signs: 08/17/25 21:47 08/17/25 21:52 08/17/25 22:03 Temperature 97.2 F L Temperature Source Temporal Pulse Rate 112 H 82 Respiratory Rate 20 H 16 Respiratory Effort Normal Non-Labored Respiratory Pattern Normal Blood Pressure 133/97 H 109/81 H Blood Pressure Mean 109 90 Pulse Ox 100 99 Oxygen Delivery Method Room Air Room Air Positive well nourished and well developed General Appearance ED: well developed and NAD HEENT Reports TM's clear and moist mucous (more content not included)... Normal [facility] ,Serum,hCG Quali.on 08-17-2025 HCG, SERUM QUAL Negative Normal [facility] Comment on above: Performed By: #### L 100.0100, L700.6800, L500.2500, L501.9520, L506.0400 ####[facility] [address] [facility] [place], [address] Soft Tissue Neck WITH Contra ston 08-17-2025 Soft Tissue Neck WITH Contrast [facility] Imaging Services [address] [place] [address] Soft Tissue Neck WITH Contrast MR#: [id number] Acct: [id number] Name: LIZZETH WHITT Rep #: [id number] : 1990 F 35 From: Demarcus Hughes MD PCP: Care Physician,No Primary Status: REG ER Study: Soft Tissue Neck WITH Contrast Date of Exam: 10/17/24 Exam# [id number] Ordering Dr: Maury Yuan DO PROCEDURE: CT SOFT TISSUE NECK WITH CONTRAST 08/17/2025 REASON FOR EXAM: THROAT PAIN, TROUBLE SWALLOWING TECHNIQUE: Procedure Code: CTNEW Modality: CT Procedure: SOFT TISSUE NECK WITH CONTRAST CONTRAST: Isovue 370 VOLUME: 74 mL One or more dose reduction techniques were used (e.g., Automated exposure control, adjustment of the mA and/or kV according to patient size, use of iterative reconstruction technique). RADIATION DOSE SUMMARY: CTDlvol: 10.09 mGy DLP: 292.38 mGycm COMPARISON: None. FINDINGS: The soft tissues of the neck are unremarkable. No neck mass or cervical lymphadenopathy. No abnormal enlargement of the tonsils or adenoids. No inflammatory fat infiltration/edema or abnormal fluid collection is seen. No pathologic enhancement. Normal symmetric appearance of the major salivary glands. Normal epiglottis. The airway is widely patent and midline. Major vascular structures are patent, normal in course and caliber. Unremarkable orbits. Clear imaged lung apices. Subcentimeter hypodense probable colloid cyst in the posterior right thyroid lobe. Visualized osseous structures are intact and within normal limits. No substantial cervical spondylotic changes. Polypoid mucosal thickening in the floors of bilateral maxillary sinuses, and complete opacification of the left frontal sinus and left frontoethmoidal recess. CT/Soft Tissue Neck WITH Contrast IMPRESSION: No acute or active inflammatory abnormality in the neck. Reading Location: [facility] CC: Dr. Maury Yuan, DO; No Primary Care Physician Resident Care Manager: Signed Normal [facility] T4 Free Directon 08-17-2025 T4 FREE DIRECT 1.30 ng/dL Normal 0.76-1.46 [facility] Comment on above: Performed By: #### L 100.0100, L700.6800, L500.2500, L501.9520, L506.0400 ####[facility] [address] [place], [place], [address] Thyroid Stim Hormone (TSH)on 08-17-2025 TSH 12.100 uIU/mL High 0.300-4.200 [facility] Comment on above: Performed By: #### L 100.0100, L700.6800, L500.2500, L501.9520, L506.0400 ####[facility] [address] [place], [place], [address] Urgent Care Visit Reporton 1 10-17-2024 Urgent Care Visit Report [facility] [address], [address] [place], [place] [address] OFFICE VISIT Date of Service: 08/17/25 MR#: [id number] Acct: [id number] Name: LIZZETH WHITT Rep #: [id number] : 1990 Provider: KENNY Mckenzie Age/Sex: 35/F Location: [facility] Status: Signed Intake Vital Signs 06/28/25 16:45 08/17/25 09:56 Height 5 ft 9 in BP 98/60 Blood Pressure Location Lt brachial Position Sitting Respiration 16 Pulse 63 Pulse Source NIBP Temp 98.6 F Temp Source Oral Pulse Oximetry (%) 96 Oxygen Delivery Method room air Intake Visit Reasons: SORE THROAT, CONGESTION, EAR PAIN Chief Complaint: lump in throat, congest, ear pain, congest Silver Designer Required: No Is patient in pain?: No Allergies amoxicillin (Amoxicillin) Allergy (Verified 08/17/25 10:23) Vomiting Medications ???Medication ???Instructions ???Recorded ???Confirmed ???Type hydroxyzine HCl 10 mg tablet 10 mg PO BID PRN anxiety #30 tabs 03/28/25 08/17/25 Rx Is last menstrual period known: No Post menopausal: No Patient : No Have you fallen in the past year?: No Nurse's Note: lump in throat, congest, ear pain with swallowing, congest x 4 days. denies fever. taking Zyrted and Flonase x 1 week without relief. 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 pets and animals: No history of recent travel: No Smoking Status: Never smoker second hand exposure: No alcohol intake: never substance use type: does not use what type of physical activity do you participate in: none seatbelt use: always do you feel safe at home: Yes additional social history: - Raffy- ODOT HPI HPI Chief Complaint: lump in throat, congest, ear pain, congest Details: LIZZETH WHITT, is a 35 F who presents to the office today for ?urin -sx started on Tuesday -sx feels like something caught in throat and hurts to swallow-ear pain started yesterday- left, + congestion, denies cough, denies fever or chills -no cp, palpitations or sob -no hx dysphagia or gerd -tried so far zyrtec and flonase ROS Const Constitutional: Positive for other (ROS negative x6 except what was placed in HPI) Exam Const General: cooperative, comfortable and no acute distress Orientation: alert, awake and oriented x3 HENMT Head: normal to inspection and normocephalic Ears: hearing grossly normal bilaterally, external ears normal and TM's normal bilaterally Nose: external nose normal and other Face and sinus: normal facial exam, sinuses nontender and face symmetric Mouth: oral mucosae normal, lip normal, tongue normal, oropharynx normal and moist mucous membranes Throat: posterior oropharynx normal, tonsils normal and uvula midline Neck Neck: normal visual inspection, full ROM and no lymphadenopathy Thyroid: other (enlarged thyroid ) Resp Effort Inspection: normal respiratory effort, able to speak in complete sentences and symmetric chest movement Auscultation: Bilateral: Clear to Auscultation, Left: Clear to Auscultation and Right: Clear to Auscultation Cardio Rate: regular rate Rhythm: regular rhythm Heart Sounds: S1 normal and S2 normal GI Auscultation: normal bowel sounds Palpation: soft Skin General: no rashes or lesions noted and turgor normal Neuro General: patient alert, patient awake and patient oriented x3 Cognition: normal cognition Speech: speech normal Psych Appearance: grossly normal Mental Status: mental status grossly normal Attitude: cooperative Thought Process: normal Thought Content: normal Coding Level of Care Code Off vis,est,level 3 Diagnoses Globus sensation R09.A2 Enlarged thyroid E04.9 Assessment and Plan Assessment and Plan (1) Globus sensation: Status: Acute Plan: -explained to pt what it is and printed information -did discuss can possibly be from her anxiety vs enlarged thyroid vs unknown cause -to establish with a pcp (2) Enlarged thyroid: Status: Acute Plan: -to establish with pcp for further work up -printed info and gave it to her Clinical Quality Measures Falls Risk Screening/Assistive Devices Have you fallen in the past year?: No (more content not included)... [facility] Anion gap in Serum or Plasma Ordered By: Lynn Muniz on 06-12-2025 Anion gap [Moles/Vol] 11 mmol/L 5-15 [facility] BUN/creatinine ratioOrdered By: Lynn Muniz on 03-28-2025 Urea nitrogen/Creatinine [Mass ratio] 13.3 mg/mg 10-20 [facility] Bilirubin, totalOrdered By: Lynn Muniz on 03-28-2025 Bilirubin [Mass/Vol] 0.62 mg/dL 0.00-1.30 [facility] Carbon dioxide, total [Moles /volume] in Central venous bloodOrdered By: Lynn Muniz on 03-28-2025 CO2 [Moles/Vol] 24.6 mmol/L 21.0-32.0 [facility] Chloride assayOrdered By: Viridiana Muniz on 03-28-2025 Chloride [Moles/Vol] 104 mmol/L 98-108 [facility] Comprehensive Metabolic Prof ilon 03-28-2025 Albumin [Mass/Vol] 4.3 g/dL Normal 3.5-5.0 [facility] Comment on above: Performed By: #### L 500.4050, L501.9520, L506.1001, L506.0400 #### [facility] [address] [place], [address] Albumin/Globulin [Mass ratio] 1.6 {ratio} Normal 0.9-2.4 [facility] Comment on above: Performed By: #### L 500.4050, L501.9520, L506.1001, L506.0400 #### [facility] [address] [place], [address] ALK PHOS 87 U/L Normal 35-104 [facility] Comment on above: Performed By: #### L 500.4050, L501.9520, L506.1001, L506.0400 #### [facility] [address] [place], [address] ALT [Catalytic activity/Vol] 8 U/L Normal <=34 [facility] Comment on above: Performed By: #### L 500.4050, L501.9520, L506.1001, L506.0400 #### [facility] [address] [place], [address] AST [Catalytic activity/Vol] 17 U/L Normal <=31 [facility] Comment on above: Performed By: #### L 500.4050, L501.9520, L506.1001, L506.0400 #### [facility] [address] [place], [address] Bilirubin [Mass/Vol] 0.62 mg/dL Normal 0.00-1.30 [facility] Comment on above: Performed By: #### L 500.4050, L501.9520, L506.1001, L506.0400 #### [facility] [address] [place], [address] BUN/CRE 13.3 RATIO Normal 10-20 [facility] Comment on above: Performed By: #### L 500.4050, L501.9520, L506.1001, L506.0400 #### [facility] [address] [place], [address] Calcium [Mass/Vol] 9.8 mg/dL Normal 7.6-11.0 [facility] Comment on above: Performed By: #### L 500.4050, L501.9520, L506.1001, L506.0400 #### [facility] [address] [place], [address] Chloride [Moles/Vol] 104 mmol/L Normal 98-108 [facility] Comment on above: Performed By: #### L 500.4050, L501.9520, L506.1001, L506.0400 #### [facility] [address] [place], [address] CO2 [Moles/Vol] 24.6 mmol/L Normal 21.0-32.0 [facility] Comment on above: Performed By: #### L 500.4050, L501.9520, L506.1001, L506.0400 #### [facility] [address] [place], [address] Creatinine [Mass/Vol] 0.76 mg/dL Normal 0.70-1.20 [facility] Comment on above: Performed By: #### L 500.4050, L501.9520, L506.1001, L506.0400 #### [facility] [address] [place], [address] GAP 11 Normal 5-15 [facility] Comment on above: Performed By: #### L 500.4050, L501.9520, L506.1001, L506.0400 #### [facility] [address] [place], [address] GFR/1.73 sq M.predicted among non-blacks MDRD (S/P/Bld) [Vol rate/Area] 107 mL/min/{1.73_m2} Normal >60 [facility] Comment on above: Result Comment: mL/m in/1.73m2 CKD-EPI Creatinine Equation (2020) Performed By: #### L 500.4050, L501.9520, L506.1001, L506.0400 #### [facility] [address] [place], [address] Globulin (S) [Mass/Vol] 2.8 g/dL Normal 2.2-4.2 [facility] Comment on above: Performed By: #### L 500.4050, L501.9520, L506.1001, L506.0400 #### [facility] [address] [place], [address] Glucose [Mass/Vol] 88 mg/dL Normal 70-99 [facility] Comment on above: Performed By: #### L 500.4050, L501.9520, L506.1001, L506.0400 #### [facility] [address] [place], [address] Potassium [Moles/Vol] 4.2 mmol/L Normal 3.3-5.1 [facility] Comment on above: Performed By: #### L 500.4050, L501.9520, L506.1001, L506.0400 #### [facility] [address] [place], [address] Sodium [Moles/Vol] 140 mmol/L Normal 133-145 [facility] Comment on above: Performed By: #### L 500.4050, L501.9520, L506.1001, L506.0400 #### [facility] [address] [place], [address] T PROT 7.0 g/dL Normal 5.9-8.4 [facility] Comment on above: Performed By: #### L 500.4050, L501.9520, L506.1001, L506.0400 #### [facility] [address] [place], [address] Urea nitrogen [Mass/Vol] 10 mg/dL Normal 4-19 [facility] Comment on above: Performed By: #### L 500.4050, L501.9520, L506.1001, L506.0400 #### [facility] [address] [place], [address] Glomerular filtration rate ( GFR) estimation/1.73 sq m using serum, plasma, or whole bOrdered By: Lynn Muniz on 03-28-2025 GFR/1.73 sq M.predicted among non-blacks MDRD (S/P/Bld) [Vol rate/Area] 107 mL/min/{1.73_m2} >60 [facility] Comment on above: mL/min/1.73m2 CKD-EP I Creatinine Equation (2020) Laboratory - Chemistry and C hemistry - challengeOrdered By: Lynn Muniz on 03-28-2025 AST [Catalytic activity/Vol] 17 U/L <32 [facility] Clinical Laboratory Aides Teacher Office Visit Reporton 03-28-2025 Clinical Laboratory Aides Teacher Office Visit Report [facility] [address], [address] [place] [address] OFFICE VISIT Date of Service: 03/28/25 MR#: [id number] Acct: [id number] Name: LIZZETH WHITT Rep #: [id number] : 1990 Provider: KENNY Yancey Age/Sex: 34/F Location: [facility] Status: Signed Intake Vital Signs 12/25/24 20:12 03/04/25 16:48 03/28/25 09:52 Height 5 ft 9 in 5 ft 9 in 5 ft 9 in Weight: 143 lb 6 oz BMI 21.2 BP 113/74 Intake Visit Reasons: Annual (SURGICAL ATTENDANT) Silver Designer Required: No Is patient in pain?: No Allergies amoxicillin (Amoxicillin) Allergy (Verified 03/28/25 09:55) Vomiting Medications ???Medication ???Instructions ???Recorded ???Confirmed ???Type hydroxyzine HCl 10 mg tablet 10 mg PO BID PRN anxiety #30 tabs 03/28/25 03/28/25 Rx Is last menstrual period known: Yes Last Menstrual Period: 03/03/25 Post menopausal: No Patient : No : No Control Method: condoms Nurse's Note: pt presents with complaints of anxiety and insomnia the week before her period. she is already prescribed hydroxyzine which she takes, but states the anxiety is still bad. she has no PCP. also reports heavy bleeding during menses. 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 Date Name GA/Weeks Outcome Route Bth Weight Infant Gen Labor Lgth Anesthesia Del Locatn Provider FOB Unknown 03/07/20 [place] HPI Encounter for routine gynecological examination Details: LIZZETH WHITT is a 34 year old who presents for annual exam. She reports she recently lost her grandmother and has been going through the coping process with this. She is taking hydroxyzine as needed for this and this works well for her. She reports she also has anxiety that stars a week before her menses. During that time she has headaches and lower back pain as well. She reports she is not interested in OCP/Combo due to family history of stroke/heart issues. Her and her are done having children--she is interested in hysterectomy. Last PAP: 2023; normal. HPV neg. History of abnormal PAP: no. Last mammogram: age 42. History of abnormal mammogram: n/a Colon cancer screening: age 47. Other preventative health care screenings: no PCP Female Reproductive History Last Menstrual Period: 03/03/25 Cycle Length: 21-35 Bleeding Duration: 7 Questions: metorrhagia: No, sexually active: Yes, dyspareunia: No and PCB: No ROS Const Constitutional: Denies chills, fatigue, fever(s), headache(s) or weight loss Eyes Eyes: Denies change in vision ENT ENT: Denies dizziness Resp Resp: Denies cough GI GI: Denies abdominal pain, constipation or nausea : Denies difficulty voiding, dysuria, hematuria, nipple discharge, pelvic pain, prolapse symptoms, urinary incontinence, vaginal discharge, vaginal dryness, vaginal odor or vaginal pruritus Skin Skin/Breast: Denies alopecia, rash, breast mass, breast pain, breast skin changes or nipple discharge Neuro Neuro: Denies dizziness Psych Psych: Reports other (recently loss grandma in January. Coping through this. ); Denies anxiety or depression Endo Endo: Denies cold intolerance, excessive sweating or heat intolerance Exam Const General: cooperative, healthy appearing, comfortable, no acute distress, well groomed and well hydrated Nutritional Appearance: well nourished Orientation: alert, awake and oriented x3 HENMT Head: normal to inspection and normocephalic Ears: hearing grossly normal bilaterally and external ears normal Nose: external nose normal Face and sinus: normal facial exam Eyes General: appearance normal, both eyes and all relat (more content not included)... [facility] Potassium measurement (mass/ volume)Ordered By: Lynn Muniz on 03-28-2025 Potassium (Unsp spec) [Mass/Vol] 4.2 mmol/L 3.3-5.1 [facility] Serum creatinine measurement (mass/volume)Ordered By: Lynn Muniz on 03-28-2025 Creatinine [Mass/Vol] 0.76 mg/dL 0.70-1.20 [facility] Serum globulin measurementOr dered By: Lynn Muniz on 03-28-2025 Globulin (S) [Mass/Vol] 2.8 g/dL 2.2-4.2 [facility] Serum glucose measurement (m ass/volume)Ordered By: Lynn Muniz on 03-28-2025 Glucose [Mass/Vol] 88 mg/dL 70-99 [facility] Serum or plasma alanine ardon otransferase (ALT) measurementOrdered By: Lynn Muniz on 03-28-2025 ALT [Catalytic activity/Vol] 8 U/L <35 [facility] Serum or plasma albumin ricardo urement (mass/volume)Ordered By: Lynn Muniz on 03-28-2025 Albumin [Mass/Vol] 4.3 g/dL 3.5-5.0 [facility] Serum or plasma albumin/glob ulin mass ratioOrdered By: Lynn Muniz on 03-28-2025 Albumin/Globulin [Mass ratio] 1.6 {ratio} 0.9-2.4 [facility] Serum or plasma alkaline hayden sphatase measurementOrdered By: Lynn Muniz on 03-28-2025 ALP [Catalytic activity/Vol] 87 U/L 35-104 [facility] Serum or plasma calcium ricardo urement (mass/volume)Ordered By: Lynn Muniz on 03-28-2025 Calcium [Mass/Vol] 9.8 mg/dL 7.6-11.0 [facility] Serum or plasma urea nitroge n measurement (mass/volume)Ordered By: Lynn Muniz on 03-28-2025 Urea nitrogen [Mass/Vol] 10 mg/dL 4-19 [facility] Sodium levelOrdered By: Juliet Muniz on 03-28-2025 Sodium [Moles/Vol] 140 mmol/L 133-145 [facility] T4 Free Directon 03-28-2025 T4 FREE DIRECT 1.00 ng/dL Normal 0.76-1.46 [facility] Comment on above: Performed By: #### L 500.4050, L501.9520, L506.1001, L506.0400 #### [facility] [address] [place], [place], [id number] T4 freeOrdered By: Lynn galvez on 03-28-2025 Free T4 [Mass/Vol] 1.00 ng/dL 0.76-1.46 [facility] TSH DL <= 0.005 mIU/L QnOrde red By: Lynn Muniz on 03-28-2025 TSH Qn 3.290 uIU/mL 0.300-4.200 [facility] Thyroid Stim Hormone (TSH)on 03-28-2025 TSH 3.290 uIU/mL Normal 0.300-4.200 [facility] Comment on above: Performed By: #### L 500.4050, L501.9520, L506.1001, L506.0400 #### [facility] [address] [place], [place], [id number] Total proteinOrdered By: Marcelino Muniz on 03-28-2025 Protein [Mass/Vol] 7.0 g/dL 5.9-8.4 [facility] Vitamin D,25 Hydroxyon 03-28 Vitamin D 25-OH 28.8 ng/mL Low 30-100 [facility] Comment on above: Result Comment: Keira min D Status Deficiency: <20 ng/mL (50nmol/L) Insufficiency: 20-30 ng/mL (50-75 nmol/L) Sufficiency: 30-100 ng/mL (75-250 nmol/L) Toxicity: >100 ng/mL (>250 nmol/L) Performed By: #### L 500.4050, L501.9520, L506.1001, L506.0400 #### [facility] [address] [place], [address] Abdomen/Pelvis without Conto n 09-17-2024 Abdomen/Pelvis without Cont [facility] Imaging Services [address] [place], [place] [address] Abdomen/Pelvis without Cont MR#: [id number] Acct: [id number] Name: LIZZETH WHITT Rep #: [id number] : 1990 F 34 From: Tejal Solano PCP: Care Physician,No Primary Status: REG ER Study: Abdomen/Pelvis without Cont Date of Exam: 12/10 Exam# [id number] Ordering Dr: Maury Yuan DO [id number] EXAM: CT Abdomen And Pelvis W/O Contrast Injection HISTORY: Pain nausea, mid abd pain, neg hcg TECHNIQUE: Routine protocol CT abdomen and pelvis. IV Contrast: None.. Oral contrast: None. RADIATION DOSAGE (If Supplied By Facility): CTDIvol = ( 6.21 ) mGy, DLP = ( 301.15 ) mGycm Individualized dose optimization techniques were used for this CT. COMPARISON: None. LIMITATIONS: None. ____ FINDINGS: LOWER CHEST: Included lung bases are clear. LIVER: Grossly unremarkable. GALLBLADDER AND BILIARY TREE: Grossly unremarkable. PANCREAS: Grossly unremarkable. SPLEEN: Grossly unremarkable. Small adjacent nodule likely a splenule. ADRENAL GLANDS: Grossly unremarkable. KIDNEYS AND URETERS: No calculi demonstrated. No hydronephrosis. PERITONEUM: No free air. No free fluid. BOWEL: No bowel obstruction. APPENDIX: Visualized and unremarkable. No evidence of acute appendicitis. VESSELS: Abdominal aorta is normal caliber. REPRODUCTIVE ORGANS: Grossly unremarkable URINARY BLADDER: Minimally distended. ABDOMINAL WALL: Unremarkable. BONES: No acute abnormalities. CT/Abdomen/Pelvis without Cont IMPRESSION: No acute findings. Electronically Signed: Tejal Palafox MD at 3:08 EST , CC: Dr. Maury Yuan, ; No Primary Care Physician Resident Care Manager: Signed Normal [facility] CBC W/Diff, Automatedon 12-0 Absolute Lymph 2.27 X10 3/uL Normal 0.83-4.51 [facility] Comment on above: Performed By: #### L 501.2450, L100.0100, L500.4050, L700.6800 ####[facility] [address] [place], [address] Absolute Neut 4.3 X10 3/uL Normal 2.0-7.7 [facility] Comment on above: Performed By: #### L 501.2450, L100.0100, L500.4050, L700.6800 ####[facility] [address] [place], [address] Basophils/100 WBC (Bld) 0.7 % Normal 0-1 [facility] Comment on above: Performed By: #### L 501.2450, L100.0100, L500.4050, L700.6800 ####[facility] [address] [place], [address] Eosinophils/100 WBC (Bld) 3.0 % Normal 0-5 [facility] Comment on above: Performed By: #### L 501.2450, L100.0100, L500.4050, L700.6800 ####[facility] [address] [place], [address] Erythrocyte distribution width (RBC) [Ratio] 12.7 % Normal 11.6-14.6 [facility] Comment on above: Performed By: #### L 501.2450, L100.0100, L500.4050, L700.6800 ####[facility] [address] [place], [address] Hematocrit (Bld) [Volume fraction] 43.7 % Normal 37-47 [facility] Comment on above: Performed By: #### L 501.2450, L100.0100, L500.4050, L700.6800 ####[facility] [address] [place], [address] Hemoglobin (Bld) [Mass/Vol] 14.7 g/dL Normal 12.0-15.0 [facility] Comment on above: Performed By: #### L 501.2450, L100.0100, L500.4050, L700.6800 ####[facility] [address] [place], [address] IG% 0.300 Normal 0.0-0.9 [facility] Comment on above: Result Comment: IG% - Immature Granulocytes (promyelocytes, myelocytes and metamyelocytes) > 1% indicates that a LEFT SHIFT is Present. Performed By: #### L 501.2450, L100.0100, L500.4050, L700.6800 ####[facility] [address] [place], [address] Lymphocytes/100 WBC (Bld) 30.6 % Normal 19-41 [facility] Comment on above: Performed By: #### L 501.2450, L100.0100, L500.4050, L700.6800 ####[facility] [address] [place], [address] MCH (RBC) [Entitic mass] 29.8 pg Normal 27.0-32.0 [facility] Comment on above: Performed By: #### L 501.2450, L100.0100, L500.4050, L700.6800 ####[facility] [address] [place], [address] MCHC (RBC) [Mass/Vol] 33.6 g/dL Normal 32-36 [facility] Comment on above: Performed By: #### L 501.2450, L100.0100, L500.4050, L700.6800 ####[facility] [address] [place], [address] MCV (RBC) [Entitic vol] 88.5 fL Normal 81-99 [facility] Comment on above: Performed By: #### L 501.2450, L100.0100, L500.4050, L700.6800 ####[facility] [address] [place], [address] Monocytes/100 WBC (Bld) 7.8 % Normal 0-10 [facility] Comment on above: Performed By: #### L 501.2450, L100.0100, L500.4050, L700.6800 ####[facility] [address] [place], [address] Neutrophils/100 WBC (Bld) 57.6 % Normal 47-70 [facility] Comment on above: Performed By: #### L 501.2450, L100.0100, L500.4050, L700.6800 ####[facility] [address] [place], [address] Nucleated RBC (Bld) [#/Vol] 0 10*3/uL Normal 0-5 [facility] Comment on above: Performed By: #### L 501.2450, L100.0100, L500.4050, L700.6800 ####[facility] [address] [place], [address] Platelet mean volume (Bld) [Entitic vol] 10.1 fL Normal 6.2-12.0 [facility] Comment on above: Performed By: #### L 501.2450, L100.0100, L500.4050, L700.6800 ####[facility] [address] [place], [address] Platelets (Bld) [#/Vol] 285 10*3/uL Normal 150-450 [facility] Comment on above: Performed By: #### L 501.2450, L100.0100, L500.4050, L700.6800 ####[facility] [address] [place], [address] RBC (Bld) [#/Vol] 4.94 10*6/uL Normal 4.2-5.4 [facility] Comment on above: Performed By: #### L 501.2450, L100.0100, L500.4050, L700.6800 ####[facility] [address] [place], [address] RDW SD 40.9 fl Normal 35.1-43.9 [facility] Comment on above: Performed By: #### L 501.2450, L100.0100, L500.4050, L700.6800 ####[facility] [address] [place], [address] WBC (Bld) [#/Vol] 7.4 10*3/uL Normal 4.4-11.0 [facility] Comment on above: Performed By: #### L 501.2450, L100.0100, L500.4050, L700.6800 ####[facility] [address] [place], [address] Comprehensive Metabolic Prof shiraz 09-17-2024 Albumin [Mass/Vol] 3.9 g/dL Normal 3.2-5.0 [facility] Comment on above: Performed By: #### L 501.2450, L100.0100, L500.4050, L700.6800 ####[facility] [address] [place], [address] Albumin/Globulin [Mass ratio] 1.1 {ratio} Normal 0.9-2.4 [facility] Comment on above: Performed By: #### L 501.2450, L100.0100, L500.4050, L700.6800 ####[facility] [address] [place], [address] ALK P 97 U/L Normal 45-117 [facility] Comment on above: Performed By: #### L 501.2450, L100.0100, L500.4050, L700.6800 ####[facility] [address] [place], [address] ALT [Catalytic activity/Vol] 14 U/L Normal 13-56 [facility] Comment on above: Performed By: #### L 501.2450, L100.0100, L500.4050, L700.6800 ####[facility] [address] [place], [address] AST [Catalytic activity/Vol] 11 U/L Low 15-37 [facility] Comment on above: Performed By: #### L 501.2450, L100.0100, L500.4050, L700.6800 ####[facility] [address] [place], [address] Bilirubin [Mass/Vol] 0.50 mg/dL Normal 0.20-1.00 [facility] Comment on above: Result Comment: For patients on eltrombopag therapy, use of Dimension [place] TBIL is not recommended. Performed By: #### L 501.2450, L100.0100, L500.4050, L700.6800 ####[facility] [address] [place], [address] BUN/CRE 19.4 RATIO Normal 10-20 [facility] Comment on above: Performed By: #### L 501.2450, L100.0100, L500.4050, L700.6800 ####[facility] [address] [place], [address] CA,Total 8.6 mg/dL Normal 8.5-10.1 [facility] Comment on above: Performed By: #### L 501.2450, L100.0100, L500.4050, L700.6800 ####[facility] [address] [place], [address] Chloride [Moles/Vol] 108 mmol/L High 98-107 [facility] Comment on above: Performed By: #### L 501.2450, L100.0100, L500.4050, L700.6800 ####[facility] [address] [place], [address] CO2 [Moles/Vol] 25.0 mmol/L Normal 21.0-32.0 [facility] Comment on above: Performed By: #### L 501.2450, L100.0100, L500.4050, L700.6800 ####[facility] [address] [place], [address] Creatinine [Mass/Vol] 0.77 mg/dL Normal 0.55-1.02 [facility] Comment on above: Result Comment: The validity of the calculated GFR GFRAA in patients over 70 years has not been determined. Clinical correlation is essential. Performed By: #### L 501.2450, L100.0100, L500.4050, L700.6800 ####[facility] [address] [place], [address] ECRCL 107.30 ml/min Normal [facility] Comment on above: Performed By: #### L 501.2450, L100.0100, L500.4050, L700.6800 ####[facility] [address] [place], [address] EST GFR - AA 111 mL/min Normal >60 [facility] Comment on above: Result Comment: Afri can [place] GFR Calc Performed By: #### L 501.2450, L100.0100, L500.4050, L700.6800 ####[facility] [address] [place], [address] GAP 8 Normal 5-15 [facility] Comment on above: Performed By: #### L 501.2450, L100.0100, L500.4050, L700.6800 ####[facility] [address] [place], [address] GFR/1.73 sq M.predicted among non-blacks MDRD (S/P/Bld) [Vol rate/Area] 92 mL/min/{1.73_m2} Normal >60 [facility] Comment on above: Result Comment: Non- GFR Calc Performed By: #### L 501.2450, L100.0100, L500.4050, L700.6800 ####[facility] [address] [place], [address] Globulin (S) [Mass/Vol] 3.5 g/dL Normal 2.2-4.2 [facility] Comment on above: Performed By: #### L 501.2450, L100.0100, L500.4050, L700.6800 ####[facility] [address] [place], [address] Glucose [Mass/Vol] 123 mg/dL High 74-106 [facility] Comment on above: Result Comment: Fast ing Glucose result from 100 to 125 mg/dL suggests IMPAIRED HOMEOSTASIS per A.D.A. criteria. Performed By: #### L 501.2450, L100.0100, L500.4050, L700.6800 ####[facility] [address] [place], [address] Potassium [Moles/Vol] 3.4 mmol/L Low 3.5-5.1 [facility] Comment on above: Performed By: #### L 501.2450, L100.0100, L500.4050, L700.6800 ####[facility] [address] [place], [address] Sodium [Moles/Vol] 141 mmol/L Normal 136-145 [facility] Comment on above: Performed By: #### L 501.2450, L100.0100, L500.4050, L700.6800 ####[facility] [address] [place], [address] T PROT 7.4 g/dL Normal 6.4-8.2 [facility] Comment on above: Performed By: #### L 501.2450, L100.0100, L500.4050, L700.6800 ####[facility] [address] [place], [address] Urea nitrogen [Mass/Vol] 15 mg/dL Normal 7-18 [facility] Comment on above: Performed By: #### L 501.2450, L100.0100, L500.4050, L700.6800 ####[facility] [address], [address] Emergency Department Summary on 09-17-2024 Emergency Department Summary [facility] Medical Records Department [address] [place] [address] Emergency Department Summary 09/17/24 MR#: [id number] Acct: [id number] Name: LIZZETH WHITT Rep #: [id number] : 1990 34 From: Maury Yuan DO PCP: Care Physician,No Primary Status:DEP ER Location: ED HPI HPI - GI History of Present Illness Chief Complaint: Abd Pain Detail of Chief Complaint: Abdominal pain Informant: patient Abdominal Pain/Flank Pain Maximum Severity: 8/10 Narrative Narrative: Patient presents with sudden onset of abdominal pain that started around 12:30 AM and woke her up from sleep. Pain is left-sided and radiates to her back. Denies urinary symptoms. Denies hematuria. Denies fever. She has had nausea but no vomiting. She is never had pain like this before. No prior abdominal surgeries. Patient has not missed any menstrual periods and is about the start her period. No history of kidney stones or diverticulitis. One of the . PFSH PFS Medical History (Updated 09/17/24 @ 04:[address] Maury Yuan, ) Ophthalmic migraine Anxiety Home Medications ???Medication ???Instructions ???Recorded ???Last Taken ???Type lansoprazole 30 mg capsule,delayed 30 mg PO DAILY #14 caps 09/17/24 Unknown Rx release (Prevacid) Allergy/AdvReac Type Severity Reaction Status Date / Time amoxicillin (Amoxicillin) Allergy Vomiting Verified 09/17/24 02:08 Family History Father Hypertension Diabetes CVA (cerebral vascular accident) Other Family history of high cholesterol Surgical History S/P wisdom tooth extraction ( 2009) Social History adopted: No household members: spouse housing: house number of children: 0 current occupational status: employed 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 pets and animals: No history of recent travel: No Smoking Status: Never smoker second hand exposure: No alcohol intake: never substance use type: does not use what type of physical activity do you participate in: none seatbelt use: always do you feel safe at home: Yes additional social history: - Milvia PEREZ ROS ROS ED Review of Systems ROS Unobtainable: other Constitutional Constitutional ED: Reports lethargy; Denies chills, fever(s), sweats or weight loss Eyes Eyes: Denies blurry vision, change in vision or diplopia ENT ENT ED: Denies rhinorrhea or sore throat Cardiovascular Cardiovascular: Denies chest pain, orthopnea or racing heartbeat Respiratory/Chest Respiratory/Chest: Denies cough, dyspnea, dyspnea on exertion, orthopnea or sputum Gastrointestinal Gastrointestinal: Reports abdominal pain and nausea; Denies diarrhea or vomiting Genitourinary Genitourinary ED: Denies dysuria, hematuria or urinary frequency Musculoskeletal Musculoskeletal: Denies arthralgias, back pain, myalgias or neck pain Integumentary Denies abscess, Abrasions or rash Neurologic Neurologic: Denies headache(s) or weakness Psychiatric Psychiatric: Denies anxiety, depression or suicidal thoughts Endocrine Endocrinology: Denies polydipsia, polyphagia or polyuria Hematologic/Lymphati c Hematologic/Lymphati c: Denies easy bleeding, easy bruising or lymphadenopathy Allergic/Immunologic Allergic/Immunologic ED: Denies mouth swelling, tongue swelling or urticaria EXAM Physical Exam Const Vital Signs: 09/17/24 02:03 09/17/24 02:06 09/17/24 03:06 Temperature 98 F 98 F 98.4 F Temperature Source Oral Oral Oral Pulse Rate 106 H 99 77 Respiratory Rate 20 H 20 H 16 Blood Pressure 129/82 H 129/82 H 118/80 Blood Pressure Mean 97 97 92 Pulse Ox 100 100 97 Oxygen Delivery Method Room Air Room Air Room Air 09/17/24 04:00 Temperature 98.4 F Temperature Source Oral Pulse Rate 72 Respiratory Rate 16 Blood Pressure 116/77 Blood Pressure Mean 90 Pulse Ox 97 Oxygen Delivery Method Room Air Positive well nourished and well developed General Appearance ED: well developed and NAD HEENT Reports TM's clear and moist mucous membranes normocephalic and atraumatic; Negative for trauma or tenderness Tympanic Membrane ED: Yes TM's clear Eyes PERRL and EOMs intact bilaterally General Eye ED: Negative for pale conjunctiva or scleral icterus Neck no lymphadenopathy, supple and no JVD General: Negative for tenderness Chest Wall inspection of chest normal and palpation of chest normal Chest: Negative for tenderness Resp normal respiratory effort and clear to auscultation bilaterally Effort and Inspection: Negative for respiratory distress or pain with movement Auscultation: Negative for (more content not included)... Normal [facility] Lipaseon 09-17-2024 Lipase [Catalytic activity/Vol] 29 U/L Normal 13-75 [facility] Comment on above: Result Comment: Ashley segundo note: LIPASE revised reference range effective 23. New Lipase methodology. Expected to produce lower values than the previous assay method. NEW Reference Range: 13 - 75 U/L Performed By: #### L 501.2450, L100.0100, L500.4050, L700.6800 ####[facility] [address] [place], [address] ,Serum,hCG Quali.on 09-17-2024 HCG, SERUM QUAL Negative Normal [facility] Comment on above: Performed By: #### L 501.2450, L100.0100, L500.4050, L700.6800 ####[facility] [address] [place], [address] Urinalysis, Completeon 09-17 BACTERIA RARE Normal None Seen [facility] Comment on above: Order Comment: CLEAN CATCH Performed By: #### L 400.0001 #### [facility] [address] [place], [address] EPI,SQUAMOUS 5-10 SEEN Normal 5-10 [facility] Comment on above: Order Comment: CLEAN CATCH Performed By: #### L 400.0001 #### [facility] [address] [place], [address] RBC 5-10 SEEN Normal 0-5 [facility] Comment on above: Order Comment: CLEAN CATCH Performed By: #### L 400.0001 #### [facility] [address] [place], [address] WBC 5-10 SEEN Normal 0-5 [facility] Comment on above: Order Comment: CLEAN CATCH Performed By: #### L 400.0001 #### [facility] [address] [place], [address] Mucus Ql (Urine sed) 0 SEEN Normal [facility] Comment on above: Order Comment: CLEAN CATCH Performed By: #### L 400.0001 #### [facility] [address] [place], [address] Vital Signs Date Time Vital Sign Value Performing Clinician Mayito noel 03-28-2025 09:52-0400 Body height 175.26 cm No Primary Care Physician [facility] 03-28-2025 09:52-0400 Body mass index (BMI) [Ratio] 21.2 kg/m2 No Primary Care Physician [facility] 03-28-2025 09:52-0400 Body weight 65.03 kg No Primary Care Physician [facility] 03-28-2025 09:52-0400 Diastolic blood pressure 74 mm[Hg] No Primary Care Physician [facility] 03-28-2025 09:52-0400 Systolic blood pressure 113 mm[Hg] No Primary Care Physician [facility] 03-04-2025 16:48-0400 Body mass index (BMI) [Ratio] 20.9 kg/m2 No Primary Care Physician [facility] 03-04-2025 16:48-0400 Body temperature 97.7 [degF] No Primary Care Physician [facility] 03-04-2025 16:48-0400 Body weight 64.41 kg No Primary Care Physician [facility] 03-04-2025 16:48-0400 Diastolic blood pressure 60 mm[Hg] No Primary Care Physician [facility] 03-04-2025 16:48-0400 Heart rate 94 /min No Primary Care Physician [facility] 03-04-2025 16:48-0400 Respiratory rate 18 /min No Primary Care Physician [facility] 03-04-2025 16:48-0400 SaO2% (BldA) [Mass fraction] 100 % No Primary Care Physician [facility] 03-04-2025 16:48-0400 Systolic blood pressure 100 mm[Hg] No Primary Care Physician [facility] 12-25-2024 20:12-0400 Body mass index (BMI) [Ratio] 21.5 kg/m2 No Primary Care Physician [facility] 12-25-2024 20:12-0400 Body temperature 97.5 [degF] No Primary Care Physician [facility] 12-25-2024 20:12-0400 Body weight 66.22 kg No Primary Care Physician [facility] 12-25-2024 20:12-0400 Diastolic blood pressure 60 mm[Hg] No Primary Care Physician [facility] 12-25-2024 20:12-0400 Heart rate 91 /min No Primary Care Physician [facility] 12-25-2024 20:12-0400 Respiratory rate 18 /min No Primary Care Physician [facility] 12-25-2024 20:12-0400 SaO2% (BldA) [Mass fraction] 98 % No Primary Care Physician [facility] 12-25-2024 20:12-0400 Systolic blood pressure 120 mm[Hg] No Primary Care Physician [facility] Encounters Encounter Date Encounter Type Care Provider Facility Start: 08-17-2025 End: 08-18-2025 Emergency department patient visit No Primary Care Physician Facility:[facility] Start: 08-17-2025 End: 08-17-2025 ambulatory Magi Mckenzie Facility:[facility] Start: 03-28-2025 Encounter for gynecological examination (general) (routine) with abnormal findings Lynn Muniz [facility] Start: 03-28-2025 End: 03-28-2025 Patient encounter procedure Lynn [facility] Work Phone: Start: 03-28-2025 End: 03-28-2025 Patient encounter status [facility] Start: 03-28-2025 End: 03-28-2025 ambulatory No Primary Care Physician [facility] Work Phone: Start: 03-28-2025 End: 03-28-2025 ambulatory Lynn Muniz Facility:[facility] Start: 09-17-2024 End: 09-17-2024 Emergency department patient visit No Primary Care Physician Facility:[facility] Procedures Date Procedure Procedure Detail Performing Clinician Start: 03-28-2025 Vitamin D, 25-hydrox y measurement No Primary Care Physician Comment on above: Vitamin D StatusDefi ciency: <20 ng/mL (50nmol/L)Insufficiency: 20-30 ng/mL (50-75 nmol/L)Sufficiency: 30-100 ng/mL (75-250 nmol/L)Toxicity: >100 ng/mL (>250 nmol/L) Plan of Treatment Date Care Activity Detail Author Start: 03-28-2025 Comprehensive metabo [facility] 2000 panel - Serum or Plasma [facility] Start: 03-28-2025 T4 free measurement [facility] Start: 03-28-2025 Thyroid stimulating hormone measurement [facility] Start: 03-28-2025 Vitamin D, 25-hydroxy measurement [facility] Alanine aminotransfe rase [Enzymatic activity/volume] in Serum or Plasma [facility] Albumin [Mass/volume ] in Serum or Plasma [facility] Alkaline phosphatase [Enzymatic activity/volume] in Serum or Plasma [facility] Anion gap in Serum or Plasma [facility] Bilirubin, total measurement [facility] BUN/Creatinine ratio [facility] Calcium [Mass/volume ] in Serum or Plasma [facility] Carbon dioxide, tota l [Moles/volume] in Central venous blood [facility] Creatinine [Mass/vol ume] in Serum or Plasma [facility] Glucose [Mass/volume ] in Serum or Plasma [facility] Measurement of renal function [facility] Potassium measurement [facility] Serum chloride measurement [facility] Sodium measurement [facility] Total protein measurement [facility] Urea nitrogen [Mass/ volume] in Serum or Plasma [facility] Immunizations Immunization Date Immunization Notes Care Provider [facility] tetanus toxoid, redu jeanine diphtheria toxoid, and acellular pertussis vaccine, adsorbed No Primary Care Physician [facility] Payers Date Payer Category Payer Self-pay [id number] 2024 Unknown [id number] Unknown [id number] [id number] [id number] Unknown [id number] 2.16.8 [id number] Unknown [id number] 2.16.8 [id number] Unknown [id number] 2.16.8 [id number] Unknown [id number] 2.16.8 [id number] Social History Date Type Detail Facility Start: 09-17-[address] [facility] Never smoked tobacco (finding) [facility] Start: 03-07-2020 Alcohol Alcohol [facility] Start: 1990 Sex Assigned At Female [facility] Medical Equipment Procedure Code Equipment Code Equipment Origin al Text Equipment Identifier Dates Blood Sugar Diagnostic (Accu-Chek Guide) strip Start: 12-04-2019 End: 05-28-2020 Blood Sugar Diagnostic (Truetrack Test) strip Start: 12-04-2019 End: 12-04-2019 Blood Sugar Diagnostic (Accu-Chek Guide) strip Start: 12-04-2019 End: 05-28-2020 Blood Sugar Diagnostic (Truetrack Test) strip Start: 12-04-2019 End: 12-04-2019 Evaluation note 12-25-2024 Note Date & Type Note Facility 12-25-2024 Evaluation note Diagnosis Onset Date Resolution Anxiety acute December 25 7:13pm Bronchitis acute December 25 7:13pm Maxillary sinusitis, acute acute December 25, 2024 7:13pm Acute pharyngitis acute February 4:15pm Bronchitis acute March 04, 2025 4:15pm Maxillary sinusitis, acute acute March 04, 2025 4:15pm Anxiety acute March 28 9:34am Encounter for routine gynecological examination noneactive March 28, 2025 9:34am [facility] Work Phone: Evaluation note 12-25-2024 Note Date & Type Note Facility 12-25-2024 Evaluation note Diagnosis Onset Date Resolution Anxiety acute December 25 7:13pm Bronchitis acute December 25 7:13pm Maxillary sinusitis, acute acute December 25, 2024 7:13pm Acute pharyngitis acute February 4:15pm Bronchitis acute March 04, 2025 4:15pm Maxillary sinusitis, acute acute March 04, 2025 4:15pm Anxiety acute March 28 9:34am Fatigue acute March 28 9:34am PMS (premenstrual syndrome) acute March 28, 2025 9:34am Encounter for routine gynecological examination noneactive March 28, 2025 9:34am [facility] Work Phone: Reason for referral (narrative) Note Date & Type Note Facility Reason for referral (narrative) No reason for referral information available [facility] Work Phone: Chief Complaint and Reason for Visit Chief Complaint Admit Date Cough/Congestion December 25, 2024 7:1 3pm Sore throat/cough/ears March 04, 2025 4: 15pm 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, 2025 9:34 am Reason for Visit Admit Date Anxiety December 25, 2024 7:1 3pm Bronchitis December 25, 2024 7:1 3pm Maxillary sinusitis, acute December 25, 2 025 7:13pm Acute pharyngitis March 04, 2025 4:15p m Bronchitis March 04, 2025 4:15p m Maxillary sinusitis, acute March 04 4:15pm Anxiety March 28, 2025 9:34 am Encounter for routine gynecological exam ination March 28, 2025 9:34am Reason for Visit Admit Date Anxiety December 25, 2024 7:1 3pm Bronchitis December 25, 2024 7:1 3pm Maxillary sinusitis, acute December 25, 2 025 7:13pm Acute pharyngitis March 04, 2025 4:15p m Bronchitis March 04, 2025 4:15p m Maxillary sinusitis, acute March 04 4:15pm Anxiety March 28, 2025 9:34 am Fatigue March 28, 2025 9:34 am PMS (premenstrual syndrome) March 28, 2 025 9:34am Encounter for routine gynecological exam ination March 28, 2025 9:34am Family History No Family History Records Found Relationship Condition Age at Onset Recorded Date/T doroteo Not Specified Family history of hypercholesterolemia U nknown father Hypertension Unknown Diabetes mellitus Unknown Cerebrovascular accident (CVA) Unknown Summary Purpose Advance Directives No Advanced Directives Records Found Additional Source Comments Care Teams (unrecognized sec tion and content) Team Status: Inactive Member Role Status Dates No Primary Care Physician Primary Care Provider Active Start: December 25, 2024 End: December 25, 2024 No Primary Care Physician Referring Provider Active Start: December 25, 2024 End: December 25, 2024 Alysha Parsons NP LINEN SORTER-C Attending Provider Active Start: December 25, 2024 End: December 25, 2024 Team Status: Inactive Member Role Status Dates Alysah Parsons NP LINEN SORTER-C Attending Provider Active Start: March 04, 2025 End: March 04, 2025 Team Status: Inactive Member Role Status Dates No Primary Care Physician Referring Provider Active Start: March 28, 2025 End: March 28, 2025 KENNY Christianson Attending Provider Active Start: March 28, 2025 End: March 28, 2025 Team Status: Active Member Role Status Dates KENNY Christianson Attending Provider Active Start: March 28, 2025 KENNY Christianson Referring Provider Active Start: March 28, 2025 Team Status: Inactive Member Role Status Dates KENNY Christianson Attending Provider Active Start: March 28, 2025 End: March 28, 2025 KENNY Christianson Referring Provider Active Start: March 28, 2025 End: March 28, 2025 Goals (unrecognized section and content) Goals may be documented in a n alternate sectionGoals may be documented in an alternate section INFORMATION SOURCE (unrecogn ized section and content) DATE CREATED AUTHOR 08/27/2025 [facility] FOR RECORDS PERTAINING TO PATIENTS WHO ARE OR HAVE BEEN ENROLLED IN A CHEMICAL DEPENDENCY/SUBSTANCEABUSE PROGRAM, SOME INFORMATION MAY BE OMITTED. This clinical summary was aggregated from multiple sources. Caution should be exercised in using it in the provision of clinical care. This summary normalizes information from multiple sources, and as a consequence, information in this document may materially change the coding, format and clinical context of patient data. In addition, data may be omitted in some cases. CLINICAL DECISIONS SHOULD BE BASED ON THE PRIMARY CLINICAL RECORDS. [employer] provides no warranty or guarantee of the accuracy or completeness of information in this document.
[2025-09-13 12:03] LABS: Hematocrit 45.2 % (37-47); Hemoglobin 14.9 g/dL (12.0-15.0); Immature Granulocytes Count 0.010 X10^3/uL (0.0-0.0); Mean Corp Hgb Conc 33.0 g/dL (32-36); Mean Corpuscular Volume 90.0 fL (81-99); Mean Platelet Vol. 10.2 fl (6.2-12.0); NRBC Flagged by Analyzer 0 % (0-5); Platelet Count 297 K/mm3 (150-450); RBC Distribution Width CV 12.5 % (11.6-14.6); RBC Distribution Width SD 41.1 fl (35.1-43.9); Red Blood Count 5.02 M/mm3 (4.2-5.4); White Blood Count 5.1 K/mm3 (4.4-11.0)
[2025-09-13 12:20] LABS: Free T3 3.1 pg/mL (2.18-3.98)
[2025-09-16 18:08] LABS: Thyroid Stim Immunoglob <0.10 IU/L (0.00-0.55)
== END | disposition home or self-care (01) ==
LOC: MTLAB 09:53
PROVIDERS: PCP Family Medicine; Referring Provider Family Medicine; Visit Provider Family Medicine
DX: E04.1 Nontoxic single thyroid nodule (principal); R79.89 Other specified abnormal findings of blood chemistry
CPT/HCPCS: 36415; 84439; 84443; 84445; 84481; 85025; 85652

== ENCOUNTER → 2025-09-20 | Outpatient (CLI) | payer OTHER, SELFPAY ==
--- NOTE | 2025-09-20 14:12 | US_ITS ---
PROCEDURE: THYROID 09/20/2025 REASON FOR EXAM: THYROID CYST TECHNIQUE: Procedure Code: USTHY Modality: US Procedure: THYROID COMPARISON: None FINDINGS: Right thyroid lobe size: 3.9 x 1.1 x 1.1 cm Left thyroid lobe size: 4.1 x 1.2 x 0.9 cm Isthmus: 0.2 cm Background parenchymal echotexture is homogeneous. Nodules: Right thyroid lobe anechoic cystic measuring mid 0.4x0.4x0.4 cm. US/Thyroid IMPRESSION: Right lobe TR1 nodule Reading [facility] [id number]
--- OUTSIDE RECORDS SUMMARY | 2025-09-20 14:26 | XMS RPT_ITS | CCD ---
Author Organization [facility] Inform ion [facility] Care Team Providers Care Flag Signalman Name Role Phone Care Physician, No Primary Primary Care Provider Unavailable Care Physician, No Primary Referring Provider Un available Issa DEMPSEY-CAlysha Attending Provider [phone] Flavio NUCLEAR OFFICER-CLynn Attending Provider Flavio NUCLEAR OFFICER-C, Lynn Referring Provider [phone] Lynn Muniz Attending Unavailable Lynn Muniz Referring [...] (2 sources) Amoxicillin Drug Allergy 03-28-2025 Vomiting [facility] (1 source) Amoxicillin Drug Allergy 08-17-2025 [facility] Repository Medications Current Medications Medication Drug Class(es) [...] 2017 12:00am April 13, 2018 2:21pm Pnv #16-Uari-Rjgcu Acid-Omega3 30 mg iron-10 mg iron-1 mg capsule (2 sources) Start: 08-13-2019 End: 06-29-2021 Pnv #52-Unuc-Lxreu Acid-Omega3 30 mg iron-10 mg iron-1 mg [...] )on 08-17-2025 BUN/CRE 17.2 RATIO Normal 08-05 [facility] Comment on above: Performed By: #### L 100.0100, L700.6800, L500.2500, L501.9520, L506.0400 ####[facility] [address] [place], [address] Calcium [Mass/Vol] 9.6 mg/dL Normal 7.6-11.0 [facility] Comment on above: Performed By: #### L 100.0100, L700.6800, L500.2500, L501.9520, L506.0400 ####[facility] [address] [place], [address] Chloride [Moles/Vol] 102 mmol/L Normal 98-108 [facility] Comment on above: Performed By: #### L 100.0100, L700.6800, L500.2500, L501.9520, L506.0400 ####[facility] [address] [place], [address] CO2 [Moles/Vol] 27.4 mmol/L Normal 21.0-32.0 [facility] Comment on above: Performed By: #### L 100.0100, L700.6800, L500.2500, L501.9520, L506.0400 ####[facility] [address] [place], [address] Creatinine [Mass/Vol] 0.70 mg/dL Normal 0.70-1.20 [facility] Comment on above: Performed By: #### L 100.0100, L700.6800, L500.2500, L501.9520, L506.0400 ####[facility] [address] [place], [address] ECRCL 119.46 ml/min Normal 50-250 [facility] Comment on above: Performed By: #### L 100.0100, L700.6800, L500.2500, L501.9520, L506.0400 ####[facility] [address] [place], [address] GAP 11 Normal 5-15 [facility] Comment on above: Performed By: #### L 100.0100, L700.6800, L500.2500, L501.9520, L506.0400 ####[facility] [address] [place], [address] GFR/1.73 sq M.predicted among non-blacks MDRD (S/P/Bld) [Vol rate/Area] 116 mL/min/{1.73_m2} Normal >60 [facility] Comment on above: Result Comment: mL/m in/1.73m2 CKD-EPI Creatinine Equation (2020) Performed By: #### L 100.0100, L700.6800, L500.2500, L501.9520, L506.0400 ####[facility] [address] [place], [address] Glucose [Mass/Vol] 97 mg/dL Normal 70-99 [facility] Comment on above: Performed By: #### L 100.0100, L700.6800, L500.2500, L501.9520, L506.0400 ####[facility] [address] [place], [address] Potassium [Moles/Vol] 3.9 mmol/L Normal 3.3-5.1 [facility] Comment on above: Performed By: #### L 100.0100, L700.6800, L500.2500, L501.9520, L506.0400 ####[facility] [address] [place], [address] Sodium [Moles/Vol] 141 mmol/L Normal 133-145 [facility] Comment on above: Performed By: #### L 100.0100, L700.6800, L500.2500, L501.9520, L506.0400 ####[facility] [address] [place], [address] Urea nitrogen [Mass/Vol] 12 mg/dL Normal 4-19 [facility] Comment on above: Performed By: #### L 100.0100, L700.6800, L500.2500, L501.9520, L506.0400 ####[facility] [address] [place], [address] CBC W/Diff, Automatedon 11-0 -2024 Absolute Lymph 3.17 X10 3/uL Normal 0.83-4.51 [facility] Comment on above: Performed By: #### L 100.0100, L700.6800, L500.2500, L501.9520, L506.0400 ####[facility] [address] [place], [address] Absolute Neut 5.2 X10 3/uL Normal 2.0-7.7 [facility] Comment on above: Performed By: #### L 100.0100, L700.6800, L500.2500, L501.9520, L506.0400 ####[facility] [address] [place], [address] Basophils/100 WBC (Bld) 0.7 % Normal 0-1 [facility] Comment on above: Performed By: #### L 100.0100, L700.6800, L500.2500, L501.9520, L506.0400 ####[facility] [address] [place], [address] Eosinophils/100 WBC (Bld) 2.1 % Normal 0-5 [facility] Comment on above: Performed By: #### L 100.0100, L700.6800, L500.2500, L501.9520, L506.0400 ####[facility] [address] [place], [address] Erythrocyte distribution width (RBC) [Ratio] 12.8 % Normal 11.6-14.6 [facility] Comment on above: Performed By: #### L 100.0100, L700.6800, L500.2500, L501.9520, L506.0400 ####[facility] [address] [place], [address] Hematocrit (Bld) [Volume fraction] 45.3 % Normal 37-47 [facility] Comment on above: Performed By: #### L 100.0100, L700.6800, L500.2500, L501.9520, L506.0400 ####[facility] [address] [place], [address] Hemoglobin (Bld) [Mass/Vol] 15.0 g/dL Normal 12.0-15.0 [facility] Comment on above: Performed By: #### L 100.0100, L700.6800, L500.2500, L501.9520, L506.0400 ####[facility] [address] [place], [address] IG% 0.300 Normal 0.0-0.9 [facility] Comment on above: Result Comment: IG% - Immature Granulocytes (promyelocytes, myelocytes and metamyelocytes) > 1% indicates that a LEFT SHIFT is Present. Performed By: #### L 100.0100, L700.6800, L500.2500, L501.9520, L506.0400 ####[facility] [address] [place], [address] Lymphocytes/100 WBC (Bld) 33.4 % Normal 19-41 [facility] Comment on above: Performed By: #### L 100.0100, L700.6800, L500.2500, L501.9520, L506.0400 ####[facility] [address] [place], [address] MCH (RBC) [Entitic mass] 29.5 pg Normal 27.0-32.0 [facility] Comment on above: Performed By: #### L 100.0100, L700.6800, L500.2500, L501.9520, L506.0400 ####[facility] [address] [place], [address] MCHC (RBC) [Mass/Vol] 33.1 g/dL Normal 32-36 [facility] Comment on above: Performed By: #### L 100.0100, L700.6800, L500.2500, L501.9520, L506.0400 ####[facility] [address] [place], [address] MCV (RBC) [Entitic vol] 89.2 fL Normal 81-99 [facility] Comment on above: Performed By: #### L 100.0100, L700.6800, L500.2500, L501.9520, L506.0400 ####[facility] [address] [place], [address] Monocytes/100 WBC (Bld) 8.6 % Normal 0-10 [facility] Comment on above: Performed By: #### L 100.0100, L700.6800, L500.2500, L501.9520, L506.0400 ####[facility] [address] [place], [address] Neutrophils/100 WBC (Bld) 54.9 % Normal 47-70 [facility] Comment on above: Performed By: #### L 100.0100, L700.6800, L500.2500, L501.9520, L506.0400 ####[facility] [address] [place], [address] Nucleated RBC (Bld) [#/Vol] 0 10*3/uL Normal 0-5 [facility] Comment on above: Performed By: #### L 100.0100, L700.6800, L500.2500, L501.9520, L506.0400 ####[facility] [address] [place], [address] Platelet mean volume (Bld) [Entitic vol] 10.2 fL Normal 6.2-12.0 [facility] Comment on above: Performed By: #### L 100.0100, L700.6800, L500.2500, L501.9520, L506.0400 ####[facility] [address] [place], [address] Platelets (Bld) [#/Vol] 285 10*3/uL Normal 150-450 [facility] Comment on above: Performed By: #### L 100.0100, L700.6800, L500.2500, L501.9520, L506.0400 ####[facility] [address] [place], [address] RBC (Bld) [#/Vol] 5.08 10*6/uL Normal 4.2-5.4 [facility] Comment on above: Performed By: #### L 100.0100, L700.6800, L500.2500, L501.9520, L506.0400 ####[facility] [address] [place], [address] RDW SD 42.1 fl Normal 35.1-43.9 [facility] Comment on above: Performed By: #### L 100.0100, L700.6800, L500.2500, L501.9520, L506.0400 ####[facility] [address] [place], [address] WBC (Bld) [#/Vol] 9.5 10*3/uL Normal 4.4-11.0 [facility] Comment on above: Performed By: #### L 100.0100, L700.6800, L500.2500, L501.9520, L506.0400 ####[facility] [address] [place], [address] Emergency Department Summary on 08-17-2025 Emergency Department Summary [facility] Medical Records Department [address] [place] [address] Emergency Department Summary 08/17/25 MR#: [id number] Acct: [id number] Name: LIZZETH WHITT Rep #: [id number] : 1990 35 From: Maury Yuan DO [...] or sweats. No history of thyroid problems. 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 Normal [facility] ,Serum,hCG Quali.on 08-17-2025 HCG, SERUM QUAL Negative Normal [facility] Comment on above: Performed By: #### L 100.0100, L700.6800, L500.2500, L501.9520, L506.0400 ####[facility] [address] [facility] [place], [address] Soft Tissue Neck WITH Contra ston 08-17-2025 Soft Tissue Neck WITH Contrast [facility] Imaging Services [address] [place] [address] Soft Tissue Neck WITH Contrast MR#: [id number] Acct: [id number] Name: LIZZETH WHITT Rep #: [id number] : 1990 F 35 From: Demarcus Hughes MD PCP: Care Physician,No Primary Status: REG ER Study: Soft Tissue Neck WITH Contrast Date of Exam: 10/17/24 Exam# [id number] Ordering Dr: Maury Yuan DO PROCEDURE: CT [...] inflammatory abnormality in the neck. Reading Location: [facility] CC: Dr. Maury Yuan, DO; No Primary Care Physician Quality Improvement Coordinator: Signed Normal [facility] T4 Free Directon 08-17-2025 T4 FREE DIRECT 1.30 ng/dL Normal 0.76-1.46 [facility] Comment on above: Performed By: #### L 100.0100, L700.6800, L500.2500, L501.9520, L506.0400 ####[facility] [address] [place], [place], [address] Thyroid Stim Hormone (TSH)on 08-17-2025 TSH 12.100 uIU/mL High 0.300-4.200 [facility] Comment on above: Performed By: #### L 100.0100, L700.6800, L500.2500, L501.9520, L506.0400 ####[facility] [address] [place], [place], [address] Urgent Care Visit Reporton 1 10-17-2024 Urgent Care Visit Report [facility] [address], [address] [place], [place] [address] OFFICE VISIT Date of Service: 08/17/25 MR#: [id number] Acct: [id number] Name: LIZZETH WHITT Rep #: [id number] : 1990 Provider: KENNY Mckenzie Age/Sex: 35/F Location: [facility] Status: Signed Intake Vital Signs 06/28/25 16:45 08/17/25 09:56 Height 5 ft 9 in BP 98/60 Blood Pressure Location Lt brachial Position Sitting Respiration 16 Pulse 63 Pulse Source NIBP Temp 98.6 F Temp Source Oral Pulse Oximetry (%) 96 Oxygen Delivery Method room air Intake Visit Reasons: SORE THROAT, CONGESTION, EAR PAIN Chief Complaint: lump in throat, congest, ear pain, congest Machine Splitter Required: No Is patient in pain?: No [...] and Flonase x 1 week without relief. 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 Normal [facility] Anion gap in Serum or Plasma Ordered By: Lynn Muniz on 06-12-2025 Anion gap [Moles/Vol] 11 mmol/L 5-15 [facility] BUN/creatinine ratioOrdered By: Lynn Muniz on 03-28-2025 Urea nitrogen/Creatinine [Mass ratio] 13.3 mg/mg 10-20 [facility] Bilirubin, totalOrdered By: Lynn Muniz on 03-28-2025 Bilirubin [Mass/Vol] 0.62 mg/dL 0.00-1.30 [facility] Carbon dioxide, total [Moles /volume] in Central venous bloodOrdered By: Lynn Muniz on 03-28-2025 CO2 [Moles/Vol] 24.6 mmol/L 21.0-32.0 [facility] Chloride assayOrdered By: Viridiana Muniz on 03-28-2025 Chloride [Moles/Vol] 104 mmol/L 98-108 [facility] Comprehensive Metabolic Prof ilon 03-28-2025 Albumin [Mass/Vol] 4.3 g/dL Normal 3.5-5.0 [facility] Comment on above: Performed By: #### L 500.4050, L501.9520, L506.1001, L506.0400 #### [facility] Laboratory [address] [place], [address] Albumin/Globulin [Mass ratio] 1.6 {ratio} Normal 0.9-2.4 [facility] Comment on above: Performed By: #### L 500.4050, L501.9520, L506.1001, L506.0400 #### [facility] Laboratory [address] [place], [address] ALK PHOS 87 U/L Normal 35-104 [facility] Comment on above: Performed By: #### L 500.4050, L501.9520, L506.1001, L506.0400 #### [facility] [address] [place], [address] ALT [Catalytic activity/Vol] 8 U/L Normal <=34 [facility] Comment on above: Performed By: #### L 500.4050, L501.9520, L506.1001, L506.0400 #### [facility] [address] [place], [address] AST [Catalytic activity/Vol] 17 U/L Normal <=31 [facility] Comment on above: Performed By: #### L 500.4050, L501.9520, L506.1001, L506.0400 #### [facility] [address] [place], [address] Bilirubin [Mass/Vol] 0.62 mg/dL Normal 0.00-1.30 [facility] Comment on above: Performed By: #### L 500.4050, L501.9520, L506.1001, L506.0400 #### [facility] [address] [place], [address] BUN/CRE 13.3 RATIO Normal 10-20 [facility] Comment on above: Performed By: #### L 500.4050, L501.9520, L506.1001, L506.0400 #### [facility] [address] [place], [address] Calcium [Mass/Vol] 9.8 mg/dL Normal 7.6-11.0 [facility] Comment on above: Performed By: #### L 500.4050, L501.9520, L506.1001, L506.0400 #### [facility] [address] [place], [address] Chloride [Moles/Vol] 104 mmol/L Normal 98-108 [facility] Comment on above: Performed By: #### L 500.4050, L501.9520, L506.1001, L506.0400 #### [facility] [address] [place], [address] CO2 [Moles/Vol] 24.6 mmol/L Normal 21.0-32.0 [facility] Comment on above: Performed By: #### L 500.4050, L501.9520, L506.1001, L506.0400 #### [facility] [address] [place], [address] Creatinine [Mass/Vol] 0.76 mg/dL Normal 0.70-1.20 [facility] Comment on above: Performed By: #### L 500.4050, L501.9520, L506.1001, L506.0400 #### [facility] [address] [place], [address] GAP 11 Normal 5-15 [facility] Comment on above: Performed By: #### L 500.4050, L501.9520, L506.1001, L506.0400 #### [facility] [address] [place], [address] GFR/1.73 sq M.predicted among non-blacks MDRD (S/P/Bld) [Vol rate/Area] 107 mL/min/{1.73_m2} Normal >60 [facility] Comment on above: Result Comment: mL/m in/1.73m2 CKD-EPI Creatinine Equation (2020) Performed By: #### L 500.4050, L501.9520, L506.1001, L506.0400 #### [facility] [address] [place], [address] Globulin (S) [Mass/Vol] 2.8 g/dL Normal 2.2-4.2 [facility] Comment on above: Performed By: #### L 500.4050, L501.9520, L506.1001, L506.0400 #### [facility] [address] [place], [address] Glucose [Mass/Vol] 88 mg/dL Normal 70-99 [facility] Comment on above: Performed By: #### L 500.4050, L501.9520, L506.1001, L506.0400 #### [facility] Laboratory [address] [place], [address] Potassium [Moles/Vol] 4.2 mmol/L Normal 3.3-5.1 [facility] Comment on above: Performed By: #### L 500.4050, L501.9520, L506.1001, L506.0400 #### [facility] [address] [place], [address] Sodium [Moles/Vol] 140 mmol/L Normal 133-145 [facility] Comment on above: Performed By: #### L 500.4050, L501.9520, L506.1001, L506.0400 #### [facility] [address] [place], [address] T PROT 7.0 g/dL Normal 5.9-8.4 [facility] Comment on above: Performed By: #### L 500.4050, L501.9520, L506.1001, L506.0400 #### [facility] [address] [place], [address] Urea nitrogen [Mass/Vol] 10 mg/dL Normal 4-19 [facility] Comment on above: Performed By: #### L 500.4050, L501.9520, L506.1001, L506.0400 #### [facility] Laboratory [address] [place], [address] Glomerular filtration rate ( GFR) estimation/1.73 sq m using serum, plasma, or whole bOrdered By: Lynn Muniz on 03-28-2025 GFR/1.73 sq M.predicted among non-blacks MDRD (S/P/Bld) [Vol rate/Area] 107 mL/min/{1.73_m2} >60 [facility] Comment on above: mL/min/1.73m2 CKD-EP I Creatinine Equation (2020) Laboratory - Chemistry and C hemistry - challengeOrdered By: Lynn Muniz on 03-28-2025 AST [Catalytic activity/Vol] 17 U/L <32 [facility] Transition Advisor Office Visit Reporton 03-28-2025 Transition Advisor Office Visit Report [facility] [address], [address] [place] [address] OFFICE VISIT Date of Service: 03/28/25 MR#: [id number] Acct: [id number] Name: LIZZETH WHITT Rep #: [id number] : 1990 Provider: KENNY Yancey Age/Sex: 34/F Location: [facility] [place] [facility] Status: Signed Intake Vital Signs 12/25/24 20:12 03/04/25 16:48 03/28/25 09:52 Height 5 ft 9 in 5 ft 9 in 5 ft 9 in Weight: 143 lb 6 oz BMI 21.2 BP 113/74 Intake Visit Reasons: Annual (OPERATING ENGINEER) Machine Splitter Required: No Is patient in pain?: No [...] PCP. also reports heavy bleeding during menses. 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 Normal [facility] Potassium measurement (mass/ volume)Ordered By: Lynn Muniz on 03-28-2025 Potassium (Unsp spec) [Mass/Vol] 4.2 mmol/L 3.3-5.1 [facility] Serum creatinine measurement (mass/volume)Ordered By: Lynn Muniz on 03-28-2025 Creatinine [Mass/Vol] 0.76 mg/dL 0.70-1.20 [facility] Serum globulin measurementOr dered By: Lynn Muniz on 03-28-2025 Globulin (S) [Mass/Vol] 2.8 g/dL 2.2-4.2 [facility] Serum glucose measurement (m ass/volume)Ordered By: Lynn Muniz on 03-28-2025 Glucose [Mass/Vol] 88 mg/dL 70-99 [facility] Serum or plasma alanine ardon otransferase (ALT) measurementOrdered By: Lynn Muniz on 03-28-2025 ALT [Catalytic activity/Vol] 8 U/L <35 [facility] Serum or plasma albumin ricardo urement (mass/volume)Ordered By: Lynn Muniz on 03-28-2025 Albumin [Mass/Vol] 4.3 g/dL 3.5-5.0 [facility] Serum or plasma albumin/glob ulin mass ratioOrdered By: Lynn Muniz on 03-28-2025 Albumin/Globulin [Mass ratio] 1.6 {ratio} 0.9-2.4 [facility] Serum or plasma alkaline hayden sphatase measurementOrdered By: Lynn Muniz on 03-28-2025 ALP [Catalytic activity/Vol] 87 U/L 35-104 [facility] Serum or plasma calcium ricardo urement (mass/volume)Ordered By: Lynn Muniz on 03-28-2025 Calcium [Mass/Vol] 9.8 mg/dL 7.6-11.0 [facility] Serum or plasma urea nitroge n measurement (mass/volume)Ordered By: Lynn Muniz on 03-28-2025 Urea nitrogen [Mass/Vol] 10 mg/dL 4-19 [facility] Sodium levelOrdered By: Juliet Muniz on 03-28-2025 Sodium [Moles/Vol] 140 mmol/L 133-145 [facility] [facility] T4 Free Directon 03-28-2025 T4 FREE DIRECT 1.00 ng/dL Normal 0.76-1.46 [facility] Comment on above: Performed By: #### L 500.4050, L501.9520, L506.1001, L506.0400 #### [facility] Laboratory [address] [place], [place], [id number] T4 freeOrdered By: Lynn galvez on 03-28-2025 Free T4 [Mass/Vol] 1.00 ng/dL 0.76-1.46 [facility] TSH DL <= 0.005 mIU/L QnOrde red By: Lynn Muniz on 03-28-2025 TSH Qn 3.290 uIU/mL 0.300-4.200 [facility] Thyroid Stim Hormone (TSH)on 03-28-2025 TSH 3.290 uIU/mL Normal 0.300-4.200 [facility] Comment on above: Performed By: #### L 500.4050, L501.9520, L506.1001, L506.0400 #### [facility] Laboratory [address] [place], [place], [id number] Total proteinOrdered By: Marcelino Muniz on 03-28-2025 Protein [Mass/Vol] 7.0 g/dL 5.9-8.4 [facility] Vitamin D,25 Hydroxyon 03-28 Vitamin D 25-OH 28.8 ng/mL Low 30-100 [facility] Comment on above: Result Comment: Keira min D Status Deficiency: <20 ng/mL (50nmol/L) Insufficiency: 20-30 ng/mL (50-75 nmol/L) Sufficiency: 30-100 ng/mL (75-250 nmol/L) Toxicity: >100 ng/mL (>250 nmol/L) Performed By: #### L 500.4050, L501.9520, L506.1001, L506.0400 #### [facility] Laboratory [address] [facility] [place], [address] Abdomen/Pelvis without Conto n 09-17-2024 Abdomen/Pelvis without Cont [facility] Imaging Services [address] [place], [place] [address] Abdomen/Pelvis without Cont MR#: [id number] Acct: [id number] Name: LIZZETH WHITT Rep #: [id number] : 1990 F 34 From: Tejal Solano PCP: Care Physician,No Primary Status: REG ER Study: Abdomen/Pelvis without Cont Date of Exam: 12/10 Exam# [id number] Ordering Dr: Maury Yuan DO [id number] EXAM: CT Abdomen And Pelvis W/O Contrast [...] Maury Yuan, ; No Primary Care Physician Quality Improvement Coordinator: Signed Normal [facility] CBC W/Diff, Automatedon 12-0 Absolute Lymph 2.27 X10 3/uL Normal 0.83-4.51 [facility] Comment on above: Performed By: #### L 501.2450, L100.0100, L500.4050, L700.6800 ####[facility] [address] [place], [address] Absolute Neut 4.3 X10 3/uL Normal 2.0-7.7 [facility] Comment on above: Performed By: #### L 501.2450, L100.0100, L500.4050, L700.6800 ####[facility] [address] [place], [address] Basophils/100 WBC (Bld) 0.7 % Normal 0-1 [facility] Comment on above: Performed By: #### L 501.2450, L100.0100, L500.4050, L700.6800 ####[facility] [address] [place], [address] Eosinophils/100 WBC (Bld) 3.0 % Normal 0-5 [facility] Comment on above: Performed By: #### L 501.2450, L100.0100, L500.4050, L700.6800 ####[facility] [address] [place], [address] Erythrocyte distribution width (RBC) [Ratio] 12.7 % Normal 11.6-14.6 [facility] Comment on above: Performed By: #### L 501.2450, L100.0100, L500.4050, L700.6800 ####[facility] [address] [place], [address] Hematocrit (Bld) [Volume fraction] 43.7 % Normal 37-47 [facility] Comment on above: Performed By: #### L 501.2450, L100.0100, L500.4050, L700.6800 ####[facility] [address] [place], [address] Hemoglobin (Bld) [Mass/Vol] 14.7 g/dL Normal 12.0-15.0 [facility] Comment on above: Performed By: #### L 501.2450, L100.0100, L500.4050, L700.6800 ####[facility] [address] [place], [address] IG% 0.300 Normal 0.0-0.9 [facility] Comment on above: Result Comment: IG% - Immature Granulocytes (promyelocytes, myelocytes and metamyelocytes) > 1% indicates that a LEFT SHIFT is Present. Performed By: #### L 501.2450, L100.0100, L500.4050, L700.6800 ####[facility] [address] [place], [address] Lymphocytes/100 WBC (Bld) 30.6 % Normal 19-41 [facility] Comment on above: Performed By: #### L 501.2450, L100.0100, L500.4050, L700.6800 ####[facility] [address] [place], [address] MCH (RBC) [Entitic mass] 29.8 pg Normal 27.0-32.0 [facility] Comment on above: Performed By: #### L 501.2450, L100.0100, L500.4050, L700.6800 ####[facility] [address] [place], [address] MCHC (RBC) [Mass/Vol] 33.6 g/dL Normal 32-36 [facility] Comment on above: Performed By: #### L 501.2450, L100.0100, L500.4050, L700.6800 ####[facility] [address] [place], [address] MCV (RBC) [Entitic vol] 88.5 fL Normal 81-99 [facility] Comment on above: Performed By: #### L 501.2450, L100.0100, L500.4050, L700.6800 ####[facility] [address] [place], [address] Monocytes/100 WBC (Bld) 7.8 % Normal 0-10 [facility] Comment on above: Performed By: #### L 501.2450, L100.0100, L500.4050, L700.6800 ####[facility] [address] [place], [address] Neutrophils/100 WBC (Bld) 57.6 % Normal 47-70 [facility] Comment on above: Performed By: #### L 501.2450, L100.0100, L500.4050, L700.6800 ####[facility] [address] [place], [address] Nucleated RBC (Bld) [#/Vol] 0 10*3/uL Normal 0-5 [facility] Comment on above: Performed By: #### L 501.2450, L100.0100, L500.4050, L700.6800 ####[facility] [address] [place], [address] Platelet mean volume (Bld) [Entitic vol] 10.1 fL Normal 6.2-12.0 [facility] Comment on above: Performed By: #### L 501.2450, L100.0100, L500.4050, L700.6800 ####[facility] [address] [place], [address] Platelets (Bld) [#/Vol] 285 10*3/uL Normal 150-450 [facility] Comment on above: Performed By: #### L 501.2450, L100.0100, L500.4050, L700.6800 ####[facility] [address] [place], [address] RBC (Bld) [#/Vol] 4.94 10*6/uL Normal 4.2-5.4 [facility] Comment on above: Performed By: #### L 501.2450, L100.0100, L500.4050, L700.6800 ####[facility] [address] [place], [address] RDW SD 40.9 fl Normal 35.1-43.9 [facility] Comment on above: Performed By: #### L 501.2450, L100.0100, L500.4050, L700.6800 ####[facility] [address] [place], [address] WBC (Bld) [#/Vol] 7.4 10*3/uL Normal 4.4-11.0 [facility] Comment on above: Performed By: #### L 501.2450, L100.0100, L500.4050, L700.6800 ####[facility] [address] [place], [address] Comprehensive Metabolic Prof shiraz 09-17-2024 Albumin [Mass/Vol] 3.9 g/dL Normal 3.2-5.0 [facility] Comment on above: Performed By: #### L 501.2450, L100.0100, L500.4050, L700.6800 ####[facility] [address] [place], [address] Albumin/Globulin [Mass ratio] 1.1 {ratio} Normal 0.9-2.4 [facility] Comment on above: Performed By: #### L 501.2450, L100.0100, L500.4050, L700.6800 ####[facility] [address] [place], [address] ALK P 97 U/L Normal 45-117 [facility] Comment on above: Performed By: #### L 501.2450, L100.0100, L500.4050, L700.6800 ####[facility] [address] [place], [address] ALT [Catalytic activity/Vol] 14 U/L Normal 13-56 [facility] Comment on above: Performed By: #### L 501.2450, L100.0100, L500.4050, L700.6800 ####[facility] [address] [place], [address] AST [Catalytic activity/Vol] 11 U/L Low 15-37 [facility] Comment on above: Performed By: #### L 501.2450, L100.0100, L500.4050, L700.6800 ####[facility] [address] [place], [address] Bilirubin [Mass/Vol] 0.50 mg/dL Normal 0.20-1.00 [facility] Comment on above: Result Comment: For patients on eltrombopag therapy, use of Dimension [place] TBIL is not recommended. Performed By: #### L 501.2450, L100.0100, L500.4050, L700.6800 ####[facility] [address] [place], [address] BUN/CRE 19.4 RATIO Normal 10-20 [facility] Comment on above: Performed By: #### L 501.2450, L100.0100, L500.4050, L700.6800 ####[facility] [address] [place], [address] CA,Total 8.6 mg/dL Normal 8.5-10.1 [facility] Comment on above: Performed By: #### L 501.2450, L100.0100, L500.4050, L700.6800 ####[facility] [address] [place], [address] Chloride [Moles/Vol] 108 mmol/L High 98-107 [facility] Comment on above: Performed By: #### L 501.2450, L100.0100, L500.4050, L700.6800 ####[facility] [address] [place], [address] CO2 [Moles/Vol] 25.0 mmol/L Normal 21.0-32.0 [facility] Comment on above: Performed By: #### L 501.2450, L100.0100, L500.4050, L700.6800 ####[facility] [address] [place], [address] Creatinine [Mass/Vol] 0.77 mg/dL Normal 0.55-1.02 [facility] Comment on above: Result Comment: The validity of the calculated GFR GFRAA in patients over 70 years has not been determined. Clinical correlation is essential. Performed By: #### L 501.2450, L100.0100, L500.4050, L700.6800 ####[facility] [address] [place], [address] ECRCL 107.30 ml/min Normal [facility] Comment on above: Performed By: #### L 501.2450, L100.0100, L500.4050, L700.6800 ####[facility] [address] [place], [address] EST GFR - AA 111 mL/min Normal >60 [facility] Comment on above: Result Comment: Afri can Swazi GFR Calc Performed By: #### L 501.2450, L100.0100, L500.4050, L700.6800 ####[facility] [address] [place], [address] GAP 8 Normal 5-15 [facility] Comment on above: Performed By: #### L 501.2450, L100.0100, L500.4050, L700.6800 ####[facility] [address] [place], [address] GFR/1.73 sq M.predicted among non-blacks MDRD (S/P/Bld) [Vol rate/Area] 92 mL/min/{1.73_m2} Normal >60 [facility] Comment on above: Result Comment: Non- GFR Calc Performed By: #### L 501.2450, L100.0100, L500.4050, L700.6800 ####[facility] [address] [place], [address] Globulin (S) [Mass/Vol] 3.5 g/dL Normal 2.2-4.2 [facility] Comment on above: Performed By: #### L 501.2450, L100.0100, L500.4050, L700.6800 ####[facility] [address] [place], [address] Glucose [Mass/Vol] 123 mg/dL High 74-106 [facility] Comment on above: Result Comment: Fast ing Glucose result from 100 to 125 mg/dL suggests IMPAIRED HOMEOSTASIS per A.D.A. criteria. Performed By: #### L 501.2450, L100.0100, L500.4050, L700.6800 ####[facility] [address] [place], [address] Potassium [Moles/Vol] 3.4 mmol/L Low 3.5-5.1 [facility] Comment on above: Performed By: #### L 501.2450, L100.0100, L500.4050, L700.6800 ####[facility] [address] [place], [address] Sodium [Moles/Vol] 141 mmol/L Normal 136-145 [facility] Comment on above: Performed By: #### L 501.2450, L100.0100, L500.4050, L700.6800 ####[facility] [address] [place], [address] T PROT 7.4 g/dL Normal 6.4-8.2 [facility] Comment on above: Performed By: #### L 501.2450, L100.0100, L500.4050, L700.6800 ####[facility] [address] [place], [address] Urea nitrogen [Mass/Vol] 15 mg/dL Normal 7-18 [facility] Comment on above: Performed By: #### L 501.2450, L100.0100, L500.4050, L700.6800 ####[facility] [address] 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 Normal [facility] Lipaseon 09-17-2024 Lipase [Catalytic activity/Vol] 29 U/L Normal 13-75 [facility] Comment on above: Result Comment: Ashley segundo note: LIPASE revised reference range effective 23. New Lipase methodology. Expected to produce lower values than the previous assay method. NEW Reference Range: 13 - 75 U/L Performed By: #### L 501.2450, L100.0100, L500.4050, L700.6800 ####[facility] [address] [place], [address] ,Serum,hCG Quali.on 09-17-2024 HCG, SERUM QUAL Negative Normal [facility] Comment on above: Performed By: #### L 501.2450, L100.0100, L500.4050, L700.6800 ####[facility] [address] [place], [address] Urinalysis, Completeon 09-17 BACTERIA RARE Normal None Seen [facility] Comment on above: Order Comment: CLEAN CATCH Performed By: #### L 400.0001 #### [facility] Laboratory [address] [place], [address] EPI,SQUAMOUS 5-10 SEEN Normal 5-10 [facility] Comment on above: Order Comment: CLEAN CATCH Performed By: #### L 400.0001 #### [facility] Laboratory [address] [place], [address] RBC 5-10 SEEN Normal 0-5 [facility] Comment on above: Order Comment: CLEAN CATCH Performed By: #### L 400.0001 #### [facility] Laboratory [address] [place], [address] WBC 5-10 SEEN Normal 0-5 [facility] Comment on above: Order Comment: CLEAN CATCH Performed By: #### L 400.0001 #### [facility] Laboratory [address] [place], [address] Mucus Ql (Urine sed) 0 SEEN Normal [facility] Comment on above: Order Comment: CLEAN CATCH Performed By: #### L 400.0001 #### [facility] Laboratory [address] [place], [address] Vital Signs Date Time Vital Sign Value Performing Clinician Mayito noel 03-28-2025 09:52-0400 Body height 175.26 cm No Primary Care Physician [facility] 03-28-2025 09:52-0400 Body mass index (BMI) [Ratio] 21.2 kg/m2 No Primary Care Physician [facility] 03-28-2025 09:52-0400 Body weight 65.03 kg No Primary Care Physician [facility] 03-28-2025 09:52-0400 Diastolic blood pressure 74 mm[Hg] No Primary Care Physician [facility] 03-28-2025 09:52-0400 Systolic blood pressure 113 mm[Hg] No Primary Care Physician [facility] 03-04-2025 16:48-0400 Body mass index (BMI) [Ratio] 20.9 kg/m2 No Primary Care Physician [facility] 03-04-2025 16:48-0400 Body temperature 97.7 [degF] No Primary Care Physician [facility] 03-04-2025 16:48-0400 Body weight 64.41 kg No Primary Care Physician [facility] 03-04-2025 16:48-0400 Diastolic blood pressure 60 mm[Hg] No Primary Care Physician [facility] 03-04-2025 16:48-0400 Heart rate 94 /min No Primary Care Physician [facility] 03-04-2025 16:48-0400 Respiratory rate 18 /min No Primary Care Physician [facility] 03-04-2025 16:48-0400 SaO2% (BldA) [Mass fraction] 100 % No Primary Care Physician [facility] 03-04-2025 16:48-0400 Systolic blood pressure 100 mm[Hg] No Primary Care Physician [facility] 12-25-2024 20:12-0400 Body mass index (BMI) [Ratio] 21.5 kg/m2 No Primary Care Physician [facility] 12-25-2024 20:12-0400 Body temperature 97.5 [degF] No Primary Care Physician [facility] 12-25-2024 20:12-0400 Body weight 66.22 kg No Primary Care Physician [facility] 12-25-2024 20:12-0400 Diastolic blood pressure 60 mm[Hg] No Primary Care Physician [facility] 12-25-2024 20:12-0400 Heart rate 91 /min No Primary Care Physician [facility] 12-25-2024 20:12-0400 Respiratory rate 18 /min No Primary Care Physician [facility] 12-25-2024 20:12-0400 SaO2% (BldA) [Mass fraction] 98 % No Primary Care Physician [facility] 12-25-2024 20:12-0400 Systolic blood pressure 120 mm[Hg] No Primary Care Physician [facility] Encounters Encounter Date Encounter Type Care Provider Facility Start: 08-17-2025 End: 08-18-2025 Emergency department patient visit No Primary Care Physician Facility:[facility] Start: 08-17-2025 End: 08-17-2025 ambulatory Magi Mckenzie Facility:[facility] Start: 03-28-2025 Encounter for gynecological examination (general) (routine) with abnormal findings Lynn Muniz [facility] Start: 03-28-2025 End: 03-28-2025 Patient encounter procedure Lynn [facility] Work Phone: Start: 03-28-2025 End: 03-28-2025 Patient encounter status [facility] Start: 03-28-2025 End: 03-28-2025 ambulatory No Primary Care Physician [facility] Work Phone: Start: 03-28-2025 End: 03-28-2025 ambulatory Lynn Muniz Facility:[facility] Start: 09-17-2024 End: 09-17-2024 Emergency department patient visit No Primary Care Physician Facility:[facility] Procedures Date Procedure Procedure Detail Performing Clinician Start: 03-28-2025 Vitamin D, 25-hydrox y measurement No Primary Care Physician Comment on above: Vitamin D StatusDefi ciency: <20 ng/mL (50nmol/L)Insufficiency: 20-30 ng/mL (50-75 nmol/L)Sufficiency: 30-100 ng/mL (75-250 nmol/L)Toxicity: >100 ng/mL (>250 nmol/L) Plan of Treatment Date Care Activity Detail Author Start: 03-28-[address] [facility] 2000 panel - Serum or Plasma [facility] Start: 03-28-2025 T4 free measurement [facility] Start: 03-28-2025 Thyroid stimulating hormone measurement [facility] Start: 03-28-2025 Vitamin D, 25-hydroxy measurement [facility] Alanine aminotransfe rase [Enzymatic activity/volume] in Serum or Plasma [facility] Albumin [Mass/volume ] in Serum or Plasma [facility] Alkaline phosphatase [Enzymatic activity/volume] in Serum or Plasma [facility] Anion gap in Serum or Plasma [facility] Bilirubin, total measurement [facility] BUN/Creatinine ratio [facility] Calcium [Mass/volume ] in Serum or Plasma [facility] Carbon dioxide, tota l [Moles/volume] in Central venous blood [facility] Creatinine [Mass/vol ume] in Serum or Plasma [facility] Glucose [Mass/volume ] in Serum or Plasma [facility] Measurement of renal function [facility] Potassium measurement [facility] Serum chloride measurement [facility] Sodium measurement [facility] Total protein measurement [facility] Urea nitrogen [Mass/ volume] in Serum or Plasma [facility] Immunizations Immunization Date Immunization Notes Care Provider [facility] tetanus toxoid, redu jeanine diphtheria toxoid, and acellular pertussis vaccine, adsorbed No Primary Care Physician [facility] Payers Date Payer Category Payer Self-pay [id number] 2024 Unknown [id number] Unknown [id number] 2.16.8 [id number] Unknown [id number] 2.16.8 [id number] Unknown [id number] 2.16.8 [id number] Unknown [id number] 2.16.8 [id number] Unknown [id number] 2.16.8 [id number] Social History Date Type Detail Facility Start: 09-17-2024 Tobacco smoking stat [facility] Never smoked tobacco (finding) [facility] Start: 03-07-2020 Alcohol Alcohol [facility] Start: 1990 Sex Assigned At Female [facility] Medical Equipment Procedure Code Equipment Code [...] gynecological examination noneactive March 28, 2025 9:34am [facility] Work Phone: Evaluation note 12-25-2024 [...] gynecological examination noneactive March 28, 2025 9:34am [facility] Work Phone: Reason for referral (narrative) Note Date & Type Note Facility Reason for referral (narrative) No reason for referral information available 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 [employer] provides no warranty or guarantee of the accuracy or completeness of information in this document.
== END | disposition home or self-care (01) ==
LOC: US 14:10
PROVIDERS: PCP Family Medicine; Referring Provider Family Medicine; Visit Provider Family Medicine
DX: E04.1 Nontoxic single thyroid nodule (principal)
CPT/HCPCS: 76536